=== PATIENT | female | born 1955 | race Caucasian/White ===

== ENCOUNTER 2017-01-15 20:27 | Emergency (ER) | payer OTHER ==
--- NOTE | 2017-01-15 20:35 | PDOC ---
History of Present Illness - General History Source: Patient Exam Limitations: No Limitations - History of Present Illness Initial Comments: 01/15/17 20:57 The patient is a 61 year old female, with a significant past medical history of HTN, DM, hyperlipidemia, non-hodgkin's lymphoma, thyroid cancer, and depression who presents to the emergency department with s/p mechanical fall. The patient reports tripping over a step, falling, and hitting her head on a metal handrail. She denies any LOC. She denies any blurry vision. She arrives to the ER with complaints of head pain and neck pain. She denies recent fevers , chills, or dizziness. She denies recent nausea, vomit, diarrhea or constipation. PAST MEDICAL HISTORY: See HPI PAST SURGICAL HISTORY: No significant history. FAMILY HISTORY: No pertinent history. SOCIAL HISTORY: Patient lives with family and is employed. MEDICATIONS: Reviewed. ALLERGIES: As per nursing notes. ROS General: No fevers or chills, no weakness, no weight loss HEENT: No change in vision. No sore throat. No ear pain CardioVascular: No chest pain or shortness of breath Respiratory:No cough, or wheezing. Gastrointestinal: No nausea, vomiting, diarrhea or constipation. No rectal bleeding Genitourinary: No dysuria, hematuria, or frequency Musculoskeletal: +neck and head pain. No joint or muscle pain or swelling Neurologic: No headache, vertigo, dizziness or loss of consciousness Psychiatric: No depression Skin: No rashes or easy bruising Endocrine: no increased thirst or abnormal weight change Allergic: no skin or latex allergy All other systems reviewed and normal Exam: GENERAL: The patient is awake, alert, and fully oriented, in no acute distress. HEAD: Large hematoma at the right occiput with some tenderness on palpation. Tenderness on palpation of neck. No bony tenderness on palpation of the C-spine . EYES: Pupils equal, round and reactive to light, extraocular movements intact, sclera anicteric, conjunctiva clear. EXTREMITIES: Normal range of motion, no edema. NEUROLOGICAL: Normal speech, normal gait. PSYCH: Normal mood, normal affect. SKIN: Warm, Dry, normal turgor, no rashes or lesions noted. <Salty Menon - Last Filed: 01/15/17 20:57> - General History Source: Patient Exam Limitations: No Limitations - History of Present Illness Initial Comments: 01/15/17 22:44 A portion of this note was documented by scribe services under my direction. I have reviewed the details of the note, within reason, and agree with the documentation. The case summary and management plan written by me. CT scan of head no acute intracranial pathology. CT scan cervical spine no acute bony pathology Assessment and plan: This is a 61-year-old male with a contusion of the scalp woke had the a head CT that was negative for any acute pathology as well as a cervical spine CT that was negative for any bony pathology. Patient discharged home will follow-up with her primary care doctor as needed. <Renan Johnson I - Last Filed: 01/15/17 22:46> - General Chief Complaint: Injury Stated Complaint: S/P FALL Time Seen by Provider: 01/15/17 20:32 Past History <Salty Menon - Last Filed: 01/15/17 20:57> - Past Medical History Cancer: Yes (Thyroid) Diabetes: Yes GI Disorders: Yes (MULTIPLE OBSTRUCTIONS) HTN: Yes Hypercholesterolemia: Yes Psychiatric Problems: Yes (Depression) - Surgical History Abdominal Surgery: Yes (HERNIA) Cholecystectomy: Yes GI Surgery: Yes - Immunization History Immunization Up to Date: No - Psycho/Social/Smoking Cessation Hx Anxiety: No Suicidal Ideation: No Smoking History: Never smoked Have you smoked in the past 12 months: No Hx Alcohol Use: No Drug/Substance Use Hx: No Substance Use Type: None <Renan Johnson I - Last Filed: 01/15/17 22:46> - Past Medical History Allergies/Adverse Reactions: Allergies Allergy/AdvReac Type Severity Reaction Status Date / Time Penicillins Allergy Verified 07/24/14 08:21 Home Medications: Ambulatory Orders Aspirin [ASA -] 81 mg PO DAILY 07/24/14 Cholecalciferol (Vitamin D3) [Vitamin D] 1,000 unit PO DAILY 07/24/14 Cyanocobalamin (Vitamin B-12) [Vitamin B-12] 2,000 mcg PO DAILY 07/24/14 Insulin Lispro [Humalog] 0 unit SQ ACHS PRN 07/24/14 Simvastatin 10 mg PO HS 07/24/14 Levothyroxine [Synthroid -] 275 mcg PO DAILY 04/09/15 Lisinopril/Hydrochlorothiazide [Lisinopril-Hctz 20-25 mg Tab] 1 each PO DAILY Metformin HCl [Metformin HCl ER] 1,000 mg PO BID 04/09/15 *Physical Exam - Vital Signs Last Vital Signs Temp Pulse Resp BP Pulse Ox 98.4 F 75 14 122/58 100 01/15/17 20:33 01/15/17 20:33 01/15/17 20:33 01/15/17 20:33 01/15/17 20:33 <Salty Menon - Last Filed: 01/15/17 20:57> *DC/Admit/Observation/Transfer - Attestations Scribe Attestion: 01/15/17 20:57 Documentation prepared by Salty Menon, acting as biomedical equipment tech for Renan Johnson MD. <Salty Menon - Last Filed: 01/15/17 20:57> - Discharge Dispostion Admit: No <Renan Johnson I - Last Filed: 01/15/17 22:46> Diagnosis at time of Disposition: Contusion of scalp Qualifiers: Encounter type: initial encounter Qualified Code(s): S00.03XA - Contusion of scalp, initial encounter - Discharge Dispostion Disposition: HOME Condition at time of disposition: Good - Patient Instructions Printed Discharge Instructions: Closed Head Injury, DI for Closed Head Injury Additional Instructions: Someone should check on you once tonight during the night. You should be arousable to your Normal level of arousability for that time of the night. If you have been vomiting, have had a seizure, or you are unable to be aroused or the person checking on you is concerned that there has been a change in your mental status they should call 911 and have you brought back to the emergency department. You can take Tylenol as needed for pain. Return to the emergency department immediately with ANY new, persistent or worsening symptoms. Continue any medications as previously prescribed by your physician. You should follow up with your primary doctor as soon as possible regarding today's emergency department visit. . Please make sure your doctor reviews the results of your emergency evaluation. Thank you for coming to the Emergency Department today for your care. It was a pleasure to see you today. Please note that your evaluation is INCOMPLETE until you follow-up with your doctor.
[2017-01-15 20:39] VITALS: BP 122/58; PULSE 75; TEMP 98.4; BMI 32.9
[2017-01-15] MEDS ORDERED: ACETAMINOPHEN 500 MG TABLET (FP) PO ONE (21:46)
[2017-01-15] MEDS ORDERED: ACETAMINOPHEN 325 MG TABLET (FP) ONE (21:47)
== END 2017-01-15 22:49 | disposition home or self-care (01) ==
LOC: FER 20:27
DX: S00.03XA Contusion of scalp, initial encounter (principal); Z85.850 Personal history of malignant neoplasm of thyroid; E11.9 Type 2 diabetes mellitus without complications; I10 Essential (primary) hypertension; E78.00 Pure hypercholesterolemia, unspecified; K92.9 Disease of digestive system, unspecified; Z79.4 Long term (current) use of insulin
CPT/HCPCS: 70450-TC; 72125-TC; 99282-25

== ENCOUNTER 2018-04-26 19:08 | Observation (INO) | payer OTHER ==
--- NOTE | 2018-04-26 20:45 | PDOC ---
Attending Attestation - HPI HPI: 04/26/18 21:15 The patient is a 63 year old female, with a significant past medical history of epilepsy, HTN, DM, hyperlipidemia, non-hodgkin's lymphoma, thyroid cancer, and depression, who presents to the emergency department s/p syncope. As per patient , she was bringing groceries into her apartment and does not recall what happened after that and before entering the ED via EMS. As per EMS, a bystander saw her drop herself to the floor prompting their call to EMS. Upon her arrival , the patient has dirt all over her face. Patient endorses mild headache and right wrist pain. She denies recent fevers, chills, or dizziness. She denies recent nausea, vomit , diarrhea or constipation. She denies recent dysuria, frequency, urgency or hematuria. She denies recent chest pain or shortness of breath. Allergies: Penicillins. Primary Care Physician: [facility] Neurologist: Dr. Ariane De La Garza - Physicial Exam PE: 04/26/18 21:18 +GENERAL: Dirt on face. Well-nourished. No apparent distress. HEENT: Normocephalic, atraumatic. PERRL, EOM intact. CARDIOVASCULAR: Normal S1, S2. Regular rate and rhythm. PULMONARY: Clear to auscultation bilaterally. ABDOMEN: Soft, non-distended, non-tender. EXTREMITIES: Right wrist pain. No gross deformities. SKIN: Warm, dry. No rash NEUROLOGICAL: No focal neurological deficits. - Medical Decision Making 04/26/18 21:[address] De La Garza, patient's neurologist, awaiting call back. 22:23 Second call placed to Dr. De La Garza, patient's neurologist, awaiting call back. 22:36 Call returned from WESLEY Caruso, case discussed with resident Dr. Prince. <Rosangela Byrd - Last Filed: 04/26/18 22:35> - Resident Resident Name: Jose Daniel Prince - ED Attending Attestation I have performed the following: I have examined & evaluated the patient, The case was reviewed & discussed with the resident, I agree w/resident's findings & plan, Exceptions are as noted - Medical Decision Making 04/26/18 22:00 EMS reports a 63-year-old female found lying on the ground with altered mental status. As per bystander this patient was seen walking down the block and didn't seem right. She lowered herself facedown on the ground. Patient did not recall what had happened. She had no initial complaints other than confusion. Upon arriving to the emergency department. She stated that she She was here was slightly confused and belligerent and requesting to leave immediately. She did have some grinding and it on her face and complained of right wrist pain. Patient has past medical history of seizures. CAT scan was obtained immediately and showed a normal CT scan of the head. There was no color Varian, facial or skull base fractures. There was no intracranial hemorrhages or brain parenchymal contusion injuries. Initial BGM was about 190. The patient was alert and oriented 4, she could not recall what happened. The last thing she remembers was walking down the block to go to her home. EKG is normal sinus rhythm at 70 bpm with first-degree AV block. Right bundle branch block and minimal criteria for LVH. 04/26/18 23:28 wrist xray: fracture radial/ulna, good ulnar and radial pulses,plan: splint , ortho consult trop=0.11, plan repeat trop ADMIT TELE OBS diag diff inclused syncope episode,atypical seizure, rt wrist fracture <Luh Mcgregor - Last Filed: 04/26/18 23:30> Attestations - Attestations 04/26/18 21:21 Documentation prepared by Rosangela Byrd, acting as medical and health services manager for Luh Mcgregor MD. <Rosangela Byrd - Last Filed: 04/26/18 22:35> - Attestations Physician Attestation: 04/26/18 21:55 this 63 yo female was BIBA after being found down <Luh Mcgregor - Last Filed: 04/26/18 23:30>
--- NOTE | 2018-04-26 21:00 | PDOC ---
History of Present Illness - General Chief Complaint: Altered Mental Status Stated Complaint: AMS Time Seen by Provider: 04/26/18 19:41 History Source: Patient Exam Limitations: No Limitations - History of Present Illness Initial Comments: 04/26/18 20:34 63 yo female pmh of diabetes, seizures FRANK presents to the ED after LOC and hitting head suddenly while walking from her car to the grocery store. Reportedly AOX2 at the seen and finger stick of 130 in the field. Pt states she has had a total of 3 seizures since August of this year without ever having a seizure or epilepsy prior to August. There is no warning or trigger with past seizures and pt describes todays LOC as similar to past seizures; also denies tongue bitting or incontinence. Pt states she did not know how she got to [facility] and has loss of time. Denies Cp, palpitations, SOB , OROZCO, N/V/F/C, or one sided weakness. Past History - Past Medical History Allergies/Adverse Reactions: Allergies Allergy/AdvReac Type Severity Reaction Status Date / Time Penicillins Allergy Verified 04/26/18 19:44 Home Medications: Ambulatory Orders Aspirin [ASA -] 81 mg PO DAILY 07/24/14 Cholecalciferol (Vitamin D3) [Vitamin D] 1,000 unit PO DAILY 07/24/14 Cyanocobalamin (Vitamin B-12) [Vitamin B-12] 2,000 mcg PO DAILY 07/24/14 Insulin Lispro [Humalog] 0 unit SQ ACHS PRN 07/24/14 Simvastatin 10 mg PO HS 07/24/14 Levothyroxine [Synthroid -] 275 mcg PO DAILY 04/09/15 Lisinopril/Hydrochlorothiazide [Lisinopril-Hctz 20-25 mg Tab] 1 each PO DAILY Metformin HCl [Metformin HCl ER] 1,000 mg PO BID 04/09/15 Cancer: Yes (Thyroid) COPD: No CHF: No Diabetes: Yes GI Disorders: Yes (MULTIPLE OBSTRUCTIONS) HTN: Yes Hypercholesterolemia: Yes Psychiatric Problems: Yes (Depression) Seizures: Yes - Surgical History Abdominal Surgery: Yes (HERNIA) Cholecystectomy: Yes GI Surgery: Yes - Immunization History Immunization Up to Date: No - Suicide/Smoking/Psychosocial Hx Smoking History: Never smoked Have you smoked in the past 12 months: No Number of Cigarettes Smoked Daily: 0 Information on smoking cessation initiated: No Hx Alcohol Use: No Drug/Substance Use Hx: No Substance Use Type: None Review of Systems - Review of Systems Constitutional: Yes: Other (LOC unknown amount of time). No: Chills, Fever HEENTM: No: Blurred Vision, Double Vision Respiratory: No: Shortness of Breath Cardiac (ROS): No: Chest Pain, Lightheadedness, Palpitations, Syncope ABD/GI: No: Constipated, Diarrhea, Nausea, Vomiting : No: Burning, Dysuria Neurological: No: Headache, Numbness, Paresthesia, Tingling, Tremors, Weakness, Unsteady Gait, Ataxia *Physical Exam - Vital Signs Last Vital Signs Temp Pulse Resp BP Pulse Ox 97.2 F L 73 17 189/71 H 100 04/26/18 20:13 04/26/18 20:15 04/26/18 20:15 04/26/18 20:15 04/26/18 20:15 ED Treatment Course - LABORATORY CBC & Chemistry Diagram: 04/26/18 21:20 04/26/18 21:20 - ADDITIONAL ORDERS Additional order review: Laboratory Results 04/26/18 20:12 POC Glucometer [id number] 04/26/18 20:12 POC Glucometer 129.13137 - RADIOLOGY Radiology Studies Ordered: Category Date Time Status HEAD CT WITHOUT CONTRAST [CT] Stat CT Scan 04/26/18 20:17 Ordered Medical Decision Making - Medical Decision Making 04/26/18 21:23 63 yo female hx of diabetes and seizures found down and AOx2. Finger stick at seen 130 Exam: No concerning or unilateral neurological s/s DDX: Seizure, arrhythmia, ACS, syncope Head CT negative for acute intracranial path Right wrist x ray ED read positive for distal ulna fracture On first encounter with pt states "I hate this hospital and will leave." Agrees to have blood glucose rechecked, have head CT and right wrist x ray after calmed down. Spoke with SENIOR APPLICATION SECURITY CONSULTANT Mrs. Caruso who works for patients Neurologist and states pt does not have formal diagnosis of true epilepsy, no eeg findings consistent. Recommends giving home dose of Oxcarbazepine 450mg at night and 300mg in the morning. Will admit pt for Tele OBS and splint right forearm and wrist. *DC/Admit/Observation/Transfer Diagnosis at time of Disposition: Syncope Qualifiers: Encounter type: subsequent encounter - Discharge Dispostion Condition at time of disposition: Fair Decision to Admit order: Yes - Referrals - Patient Instructions - Post Discharge Activity
[2018-04-26 21:35] LABS: BASO % 0.8 % (0-2.0); HEMATOCRIT 34.1 % (32.4-45.2); HEMOGLOBIN 11.3 GM/dL (10.7-15.3); LYMPH % 12.6 % (8-40); MCH 26.7 pg (25.7-33.7); MCHC 33.2 g/dl (32.0-36.0); MEAN CELL VOLUME 80.3 fl (80-96); MEAN PLT VOLUME 6.9 fl (7.5-11.1); MONO % 3.4 % (3.8-10.2); NEUT % 82.2 % (42.8-82.8); PLATELET COUNT 347 K/MM3 (134-434); RBC 4.24 M/mm3 (3.60-5.2); WHITE BLOOD COUNT 8.4 K/mm3 (4.0-10.0)
[2018-04-26 21:50] LABS: INR 1.1 (0.83-1.09)
[2018-04-26 22:04] LABS: ALBUMIN 4.2 g/dl (3.4-5.0); ALK PHOS 94 U/L (45-117); ANION GAP 12 MMOL/L (8-16); BILIRUBIN,TOTAL 0.3 mg/dL (0.2-1); BLOOD UREA NITROGEN 20 mg/dL (7-18); CALCIUM 8.6 mg/dL (8.5-10.1); CHLORIDE 101 mmol/L (98-107); CO2 24 mmol/L (21-32); CREATININE 0.9 mg/dL (0.55-1.3); GLUCOSE,RANDOM 122 mg/dL (74-106); SGOT/AST 22 U/L (15-37); SGPT/ALT 25 U/L (13-61); SODIUM 137 mmol/L (136-145); TOT PROT 8.1 g/dl (6.4-8.2)
[2018-04-26] MEDS ORDERED: OXcarbazepine 300 MG/5 ML 250 ML BULK BOTTLE PO ONE (22:37)
[2018-04-26 23:13] LABS: URINE APPEARANCE CLEAR; URINE BILIRUBIN NEGATIVE (<2.0 mg/dL); URINE COLOR STRAW; URINE GLUCOSE (UA) NEGATIVE (NEGATIVE); URINE KETONE NEGATIVE (NEGATIVE); URINE LEUK ESTERASE NEGATIVE (NEGATIVE); URINE NITRITE NEGATIVE (NEGATIVE); URINE PROTEIN 2+ (NEGATIVE); URINE UROBILINOGEN NEGATIVE mg/dL (0.2-1.0)
[2018-04-26] MEDS ORDERED: ACETAMINOPHEN 1000 MG/100 ML VIAL (NON FORMULARY) IVPB ONE (23:26)
[2018-04-26] MEDS ORDERED: ACETAMINOPHEN INJECTION 100 ML IVPB ONE (23:29)
--- NOTE | 2018-04-27 00:48 | HP ---
CHIEF COMPLAINT: syncopal episode, fall PCP: [facility] Neurologist: Dr. Ariane De La Garza HISTORY OF PRESENT ILLNESS: Patient is a 63 year old female with history significant for falls (last one a month ago), seizures, non-hodgkins lymphoma, thyroid cancer s/p resection, diabetes, hypertension, hyperlipidemia, depression, small bowel obstruction, presents s/p syncopal episode and fall. Patient states she was coming home from grocery shopping at 5:30 this afternoon, and next remembers hearing voices and waking up inside the ambulance. She denies any prodromal symptoms. Denies dizziness, lightheadedness, change in vision, tinnitus, chest pain, palpitations , shortness of breath, abdominal pain, nausea. Endorses feeling confused, with nausea ad headache for one hour after regaining consciousness. Denies bladder or bowel incontinence, tongue biting. She is unsure if she hit her head. Per ED note, a witness noticed that she brought herself to the ground, however patient believes her life-alert bracelet had called for EMS after a fall. She admits she had 4 similar falls that began August 2017, and admits numerous workups that have been non-revealing to the etiology of these events. ER course was notable for: (1) EKG: NSR at 70bpm, borderline first degree heart block, RBBB. Troponin 0.11 (2) CT head negative for interracial hemorrhage (preliminary read). (3) Fracture of right distal ulna Recent Travel: denies PAST MEDICAL HISTORY: Falls (last one a month ago), seizures, non-hodgkins lymphoma, thyroid cancer s/p resection, diabetes, hypertension, hyperlipidemia, depression, small bowel obstruction, PAST SURGICAL HISTORY: Mesenteric artery, hernia repair, cholecystectomy, thyroidectomy Social History: Smoking: admits smoking marijuana heavily between [id number]. Alcohol: denies Drugs: admits using hemp oil to help fall asleep. 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 Father: CAD, s/p cardiac stents. Allergies Penicillins Allergy (Verified 04/26/18 19:44) HOME MEDICATIONS: Home Medications Medication Instructions Recorded Aspirin [ASA -] 81 mg PO DAILY 07/24/14 Cholecalciferol (Vitamin D3) 1,000 unit PO DAILY 07/24/14 [Vitamin D] Cyanocobalamin (Vitamin B-12) 2,000 mcg PO DAILY 07/24/14 [Vitamin B-12] Insulin Lispro [Humalog] 0 unit SQ ACHS PRN 07/24/14 Simvastatin 10 mg PO HS 07/24/14 Levothyroxine [Synthroid -] 275 mcg PO DAILY 04/09/15 Lisinopril/Hydrochlorothiazide 1 each PO DAILY 04/09/15 [Lisinopril-Hctz 20-25 mg Tab] Metformin HCl [Metformin HCl ER] 1,000 mg PO BID 04/09/15 REVIEW OF SYSTEMS As per HPI PHYSICAL EXAMINATION Vital Signs - 24 hr 04/26/18 04/26/18 04/26/18 19:10 20:13 20:15 Temperature 97.7 F 97.2 F L Pulse Rate 69 Pulse Rate [ 73 73 Apical] Respiratory 17 18 17 Rate Blood Pressure 141/75 Blood Pressure 189/71 H 189/71 H [Left Arm] O2 Sat by Pulse 97 100 100 Oximetry (%) GENERAL: Awake, alert, and fully oriented, in no acute distress. HEAD: Normal with no signs of trauma. EYES: Pupils equal, round and reactive to light, extraocular movements intact without nystagmus. Sclera anicteric, conjunctiva noninjected b/l. EARS, NOSE, THROAT: Oropharynx clear without exudates. Moist mucous membranes. No tongue bite valdivia, or bleeding noted. NECK: Normal range of motion, supple without lymphadenopathy, JVD, or masses. LUNGS: Breath sounds equal, clear to auscultation bilaterally. No wheezes, and no crackles. No accessory muscle use. HEART: Regular rate and rhythm, normal S1 and S2. Holosystolic murmur appreciated radiating to carotids b/l. ABDOMEN: Obese. Soft, nontender, not distended, normoactive bowel sounds, no guarding, no rebound, no masses. No hepatomegaly palpated. MUSCULOSKELETAL: Normal range of motion at all joints. No bony deformities or tenderness. No CVA tenderness. UPPER EXTREMITIES: 2+ radial pulses b/l, warm, well-perfused. Right forearm swollen, tender to palpation. LOWER EXTREMITIES: 2+ dorsalsi pedis pulses b/l, warm, well-perfused. No calf tenderness. No peripheral edema b/l. NEUROLOGICAL: Cranial nerves II-XII intact. Normal speech. Normal gait. Strength 5/5 left upper extremity, 4/5 right upper extremity (limited by pain in right forearm). Strength 5/5 b/l lower extremities. PSYCHIATRIC: Cooperative. Appropriate mood and affect upon my encounter today. SKIN: Warm, dry. Old, healed, vertical surgical scar noted along abdomen. Numerous scratches along b/l hands noted. Laboratory Results - last 24 hr 04/26/18 04/26/18 04/26/18 20:12 21:20 21:20 WBC 8.4 RBC 4.24 Hgb 11.3 Hct 34.1 MCV 80.3 MCH 26.7 MCHC 33.2 RDW 15.0 Plt Count 347 MPV 6.9 L D Absolute Neuts (auto) 6.9 Neutrophils % 82.2 Lymphocytes % 12.6 Monocytes % 3.4 L Eosinophils % 1.0 Basophils % 0.8 Nucleated RBC % 0 PT with INR 13.00 INR 1.10 H Sodium Potassium Chloride Carbon Dioxide Anion Gap BUN Creatinine Creat Clearance w eGFR POC Glucometer [id number] Random Glucose Calcium Total Bilirubin AST ALT Alkaline Phosphatase Creatine Kinase Troponin I Total Protein Albumin Urine Color Urine Appearance Urine pH Ur Specific [place] Urine Protein Urine Glucose (UA) Urine Ketones Urine Blood Urine Nitrite Urine Bilirubin Urine Urobilinogen Ur Leukocyte Esterase Urine WBC (Auto) Urine RBC (Auto) Blood Type Antibody Screen 04/26/18 04/26/18 04/26/18 21:20 21:20 23:04 WBC RBC Hgb Hct MCV MCH MCHC RDW Plt Count MPV Absolute Neuts (auto) Neutrophils % Lymphocytes % Monocytes % Eosinophils % Basophils % Nucleated RBC % PT with INR INR Sodium 137 Potassium 4.0 Chloride 101 Carbon Dioxide 24 Anion Gap 12 BUN 20 H Creatinine 0.9 Creat Clearance w eGFR > 60 POC Glucometer Random Glucose 122 H Calcium 8.6 Total Bilirubin 0.3 AST 22 ALT 25 Alkaline Phosphatase 94 Creatine Kinase 118 Troponin I 0.11 H Total Protein 8.1 Albumin 4.2 Urine Color Straw Urine Appearance Clear Urine pH 8.0 D Ur Specific [place] 1.009 L Urine Protein 2+ H Urine Glucose (UA) Negative Urine Ketones Negative Urine Blood 1+ H Urine Nitrite Negative Urine Bilirubin Negative Urine Urobilinogen Negative Ur Leukocyte Esterase Negative Urine WBC (Auto) 1 Urine RBC (Auto) 4 Blood Type A POSITIVE Antibody Screen Negative 10/28/18 23:11 WBC RBC Hgb Hct MCV MCH MCHC RDW Plt Count MPV Absolute Neuts (auto) Neutrophils % Lymphocytes % Monocytes % Eosinophils % Basophils % Nucleated RBC % PT with INR INR Sodium Potassium Chloride Carbon Dioxide Anion Gap BUN Creatinine Creat Clearance w eGFR POC Glucometer Random Glucose Calcium Total Bilirubin AST ALT Alkaline Phosphatase Creatine Kinase Troponin I 0.11 H Total Protein Albumin Urine Color Urine Appearance Urine pH Ur Specific [place] Urine Protein Urine Glucose (UA) Urine Ketones Urine Blood Urine Nitrite Urine Bilirubin Urine Urobilinogen Ur Leukocyte Esterase Urine WBC (Auto) Urine RBC (Auto) Blood Type Antibody Screen ASSESSMENT/PLAN: Patient is a 63 year old female with history significant for falls (last one a month ago), seizures, non-hodgkins lymphoma, thyroid cancer s/p resection, diabetes, hypertension, hyperlipidemia, depression, small bowel obstruction, presents s/p syncopal episode and fall. Syncopal episode, fall -Neurogenic vs. cardiogenic etiology -CT head negative for interracial hemorrhage (preliminary read). -Obtain records from outpatient neurologist/ [facility] -Orthostatic BP -Fall precautions -Seizure precautions -Neuro checks Q4H -Continue Oxcarbazepine 300mg AM, 450mg HS -F/U carotid doppler -F/U neurology consult (Dr. Wolfe) Right wrist fracture -Xray right wrist shows distal ulnar avulsion fracture (upon my read). Pending official read -Volar splint applied in ED -F/U orthopedic consult (Dr. Orona) -Tylenol 650mg PO Q6H PRN pain 1-5 -Oxycodone 5mg PO Q6H PRN pain 6-10 -Dulcolax, senna for constipation Troponinemia -Likely demand ischemia vs. hypertensive emergency (BP upon admission was 189/71 ) -EKG shows normal sinus rhythm at 70 bpm. Borderline first degree heart block. RBBB. -Trend troponins -F/U CKMB -F/U cardiology consult (Dr. Oviedo) -F/U cardiac echo Hypertenison -Lisinopril 30mg PO daily -Amlodipine 5mg PO daily Hyperlipidemia -Simvastatin 10mg PO daily Thyroid CA s/p thyroidectomy -Synthroid 0.150mg PO daily FEN -No IV fluids -Follow CMP -Diabetic diet Prophylaxis -Heparin 5000u subq TID Disposition -Observation in medical-surgical floor Visit type - Emergency Visit Emergency Visit: Yes Care time: The patient presented to the Emergency Department on the above date and was hospitalized for further evaluation of their emergent condition. - New Patient This patient is new to me today: Yes Date on this admission: 04/27/18 - Critical Care Critical Care patient: No
--- NOTE | 2018-04-27 00:48 | PN ---
Teaching Attending Note Name of Resident: Jennifer Coffey ATTENDING PHYSICIAN STATEMENT I saw and evaluated the patient. I reviewed the resident's note and discussed the case with the resident. I agree with the resident's findings and plan as documented. SUBJECTIVE: Seen and examined; please see resident's full note for further historical details. In summation, this is a 63 y/o CF with a PMH significant for NHL, thyroid CA (both s/p sgy), idiopathic seizures diagnosed earlier this year, DM, HTN, HLD. She presents to the hospital with a CC of being brought in by EMS for fall while out in public that appears to be a syncopal episode. She has been seen for syncopal episodes in past at other hospitals and did, as per the patient, have an extensive work up done last month during a [address] [facility]. She tells me that she had MRI, EEG, loop recorder and still no identifiable cause of the syncopal episodes. It sounds like, by history, that this is what prompted her diagnosis of seizure. Today she went down without any rotational motion or sx; she states she was awake then the ' next thing she knew was that she was in an ambulance.' The episode was witnessed by other people; no reported tonic-clonic activity; patient denies loss of bowel or bladder controlling. We are in process of obtaining outpatient records and records from previous hospitalization. She will be brought to the medicine service. Other issues include R-forearm fracture from the fall today s/p splinting in the ER, flat (but elevated) troponin. 10 sys ROS done; negative if not in HPI Denies EtOH, drugs, tobacco. PSH significant for thyroidectomy PMH as discussed FH for father with CAD OBJECTIVE: VS Labs and imaging reviewed NAD, resting in bed, AAO RRR s1/2 with 3/6 systolic murmur CN2-12 grossly intact with normal gait, no FND. No cerebellar signs. Normal mood, appropriate behavior NT ND +BS Trachea midline, no JVD In L-sided splint applied by ER; normal tone and ROM aside from the pain and splinting restricting the right forearm. EKG reviewed; borderline first degree HB with RBBB R-sided distal ulnar fx likely; awaiting final report ASSESSMENT AND PLAN: 1) Syncope with Fall -Patient brought in by EMS for this; has had these sx repeatedly. No cause identified and has been worked up for this at length in the past at other facilities. Following outpatient with neurology and cardiology. -In terms of workup, obtain old chart from [facility] from last month to see what tests should still be ordered (MRI, echo, etc.). We will check orthostatic VS and monitor on tele with neuro checks and seizure precautions. -In terms of neurogenic causes, ER spoke with the patient's OP neurologist [employer]. They stated to continue her on her home meds. We will review old studies (MRI, EEG) and obtain the outpatient chart. If deemed necessary can consult neurology in the morning vs. outpt. followup. Monitor for sz. -In terms of cardiogenic causes, we will monitor on tele and obtain old records from OP cardiology. Her BP was nearly 190 SBP when presenting so there is a chance that hypertensive crisis could have contributed to her presentation. Ensure she has old echo. Given her PMH lending risk factors for vascular disease, if it hasn't been done would be worth checking a carotid duplex. 2) Elevated Troponin -No CP, SOB; has had these sx in the past and they aparently were not from any ACS, etc. Due to this I have a low suspicion that these do represent any true ACS at this juncture. She does have significant risk factors for heart disease including age, PMH, FH (father). Thus we will monitor on telemetry, trend troponin, and consult cardio. -Ddx includes demand vs. hypertensive emergency vs. ACS (less likely) -Wells Score is 0 making PE unlikely. 3) Hypertensive Emergency (likely) -Continue home meds; PRN hydralazine to lower BP at appropriate rate. Now in 140s; monitor on tele. -Titrate home med doses if needed once baseline established 4) R-Distal Ulnar Fracture -Seen on imaging; awaiting final report. -Orthopedic sgy consult -Splinted in ER. Pain control and bowel regimine. -PT if indicated 5) History of NHL -No acute issues; followup outpt 6) H/O Thyroid CA -NO acute issues, followup OP 7) Systolic Murmur -Followup on old echo vs. obtaining new 8) History Of Seizures -Idiopathic as per history; obtain old data to better elucidate the underlying etiology. -Continue home medications per call 9) NIDDM -Hold PO antihyperglycemics and place on SSI while inpatient. 10) HLD -Continue statin 11) Obesity -Collector Of Internal Revenue when clinically appropriate 12) RBBB -Obtain old EKG to see if old 13) S/P loop recorder -Obtaining cards records Full Code
[2018-04-27] MEDS ORDERED: BISACODYL 5 MG TABLET.DR (FP) PO PRN (00:50)
[2018-04-27] MEDS ORDERED: oxyCODONE HCL 5 MG TABLET PO PRN (00:58)
[2018-04-27] MEDS ORDERED: ACETAMINOPHEN 500 MG TABLET (FP) PO ONE (03:10)
[2018-04-27] MEDS ORDERED: ACETAMINOPHEN 325 MG TABLET (FP) ONE ×2 (03:11→09:55)
[2018-04-27] MEDS ORDERED: ACETAMINOPHEN INJECTION 100 ML IVPB ONE (03:12)
[2018-04-27] MEDS ORDERED: ACETAMINOPHEN 1000 MG/100 ML VIAL (NON FORMULARY) IVPB ONE (03:12)
[2018-04-27] MEDS ORDERED: HEPARIN NA (PORCINE) 5,000 UNITS/ML 1ML VIAL ONE (06:25)
[2018-04-27] MEDS: HEPARIN NA (PORCINE) 5,000 UNITS/ML 1ML VIAL SQ SCH ×3 (06:40→22:00)
[2018-04-27] MEDS: INSULIN SLIDING SCALE (NOVOLOG) 1 VIAL SQ SCH ×4 (06:50→22:00)
[2018-04-27] MEDS: LEVOTHYROXINE NA 150 MCG TABLET PO SCH (06:50)
[2018-04-27 07:22] LABS: HEMATOCRIT 30.8 % (32.4-45.2); HEMOGLOBIN 10.1 GM/dL (10.7-15.3); MCH 26.2 pg (25.7-33.7); MCHC 32.8 g/dl (32.0-36.0); MEAN CELL VOLUME 79.9 fl (80-96); MEAN PLT VOLUME 6.7 fl (7.5-11.1); PLATELET COUNT 319 K/MM3 (134-434); RBC 3.85 M/mm3 (3.60-5.2); RDW 15.2 % (11.6-15.6); WHITE BLOOD COUNT 7.8 K/mm3 (4.0-10.0)
[2018-04-27 08:06] LABS: ALBUMIN 3.7 g/dl (3.4-5.0); ALK PHOS 77 U/L (45-117); ANION GAP 7 MMOL/L (8-16); BILIRUBIN,TOTAL 0.3 mg/dL (0.2-1); BLOOD UREA NITROGEN 21 mg/dL (7-18); CALCIUM 8.6 mg/dL (8.5-10.1); CHLORIDE 101 mmol/L (98-107); CO2 26 mmol/L (21-32); GLUCOSE,RANDOM 115 mg/dL (74-106); MAGNESIUM 2.1 mg/dL (1.8-2.4); PHOSPHOROUS 4.4 mg/dL (2.5-4.9); POTASSIUM 3.6 mmol/L (3.5-5.1); SGOT/AST 18 U/L (15-37); SGPT/ALT 22 U/L (13-61); SODIUM 134 mmol/L (136-145)
[2018-04-27] MEDS ORDERED: OXcarbazepine 300 MG/5 ML 250 ML BULK BOTTLE PO ONE (09:00)
--- NOTE | 2018-04-27 09:28 | CONSULT ---
Consult - text type - Consultation Consultation Note: Neurology CHIEF COMPLAINT: syncopal episode, fall PCP: [facility] Neurologist: Dr. Ariane De La Garza HISTORY OF PRESENT ILLNESS: 63 year old female with history significant for falls (last one a month ago), reported seizures, non-hodgkins lymphoma, thyroid cancer s/p resection, diabetes , hypertension, hyperlipidemia, depression, small bowel obstruction, presents s/ p syncopal episode and fall. Patient stated she was coming home from grocery shopping at 5:30pm on day of admission, and next remembers hearing voices and waking up inside the ambulance. She denied any prodromal symptoms. Denied dizziness, lightheadedness, change in vision, tinnitus, chest pain, palpitations , shortness of breath, abdominal pain, nausea. Endorsed feeling confused, with nausea and headache for one hour after regaining consciousness. Denied bladder or bowel incontinence, tongue biting. She is unsure if she hit her head. Reportedly had 4 similar falls that began August 2017, and admited numerous workups that have been non-revealing to the etiology of these events. EKG with reported NSR at 70bpm, borderline first degree heart block, RBBB. CT head without acute changes, Fracture of right distal ulna on xray, patient in ER with cast on arm. Patient reports most recently having 5 days of EEG monitoring and did not show epileptiform activty. She takes trileptal 450 and 300 and follows up with epileptoligist. Does not seem to have symptoms consistent with seizure and seems more syncopal. Recent Travel: denies PAST MEDICAL HISTORY: Falls (last one a month ago), seizures, non-hodgkins lymphoma, thyroid cancer s/p resection, diabetes, hypertension, hyperlipidemia, depression, small bowel obstruction, PAST SURGICAL HISTORY: Mesenteric artery, hernia repair, cholecystectomy, thyroidectomy Social History: Smoking: admits smoking marijuana heavily between [id number]. Alcohol: denies Drugs: admits using hemp oil to help fall asleep. 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 Father: CAD, s/p cardiac stents. Allergies Penicillins Allergy (Verified 04/26/18 19:44) HOME MEDICATIONS: Home Medications Medication Instructions Recorded Aspirin [ASA -] 81 mg PO DAILY 07/24/14 Cholecalciferol (Vitamin D3) 1,000 unit PO DAILY 07/24/14 [Vitamin D] Cyanocobalamin (Vitamin B-12) 2,000 mcg PO DAILY 07/24/14 [Vitamin B-12] Insulin Lispro [Humalog] 0 unit SQ ACHS PRN 07/24/14 Simvastatin 10 mg PO HS 07/24/14 Levothyroxine [Synthroid -] 275 mcg PO DAILY 04/09/15 Lisinopril/Hydrochlorothiazide 1 each PO DAILY 04/09/15 [Lisinopril-Hctz 20-25 mg Tab] Metformin HCl [Metformin HCl ER] 1,000 mg PO BID 04/09/15 REVIEW OF SYSTEMS As per HPI PHYSICAL EXAMINATION Vital Signs Period Temp Pulse Resp BP Sys/Amaro Pulse Ox Last 24 Hr 97.0 F-97.7 F 54-73 16-18 133-189/50-75 97-100 GENERAL: Awake, alert, and fully oriented, in no acute distress. HEAD: Normal with no signs of trauma. EYES: Pupils equal, round and reactive to light, extraocular movements intact without nystagmus. Sclera anicteric, conjunctiva noninjected b/l. EARS, NOSE, THROAT: Oropharynx clear without exudates. Moist mucous membranes. No tongue bite valdivia, or bleeding noted. NECK: Normal range of motion, supple without lymphadenopathy, JVD, or masses. LUNGS: Breath sounds equal, clear to auscultation bilaterally. No wheezes, and no crackles. No accessory muscle use. HEART: Regular rate and rhythm, normal S1 and S2. Holosystolic murmur appreciated radiating to carotids b/l. ABDOMEN: Obese. Soft, nontender, not distended, normoactive bowel sounds, no guarding, no rebound, no masses. No hepatomegaly palpated. MUSCULOSKELETAL: Normal range of motion at all joints. No bony deformities or tenderness. No CVA tenderness. UPPER EXTREMITIES: 2+ radial pulses b/l, warm, well-perfused. Right forearm swollen, tender to palpation. LOWER EXTREMITIES: 2+ dorsalsi pedis pulses b/l, warm, well-perfused. No calf tenderness. No peripheral edema b/l. NEUROLOGICAL: Cranial nerves II-XII intact. Normal speech. Normal gait. Strength 5/5 left upper extremity, 4/5 right upper extremity (limited by pain in right forearm). Strength 5/5 b/l lower extremities. PSYCHIATRIC: Cooperative. Appropriate mood and affect upon my encounter today. SKIN: Warm, dry. Old, healed, vertical surgical scar noted along abdomen. Numerous scratches along b/l hands noted. CBCD WBC 7.8 K/mm3 (4.0-10.0) 04/27/18 07:10 RBC 3.85 M/mm3 (3.60-5.2) 04/27/18 07:10 Hgb 10.1 GM/dL (10.7-15.3) L 04/27/18 07:10 Hct 30.8 % (32.4-45.2) L 04/27/18 07:10 MCV 79.9 fl (80-96) L 04/27/18 07:10 MCHC 32.8 g/dl (32.0-36.0) 04/27/18 07:10 RDW 15.2 % (11.6-15.6) 04/27/18 07:10 Plt Count 319 K/MM3 (134-434) 04/27/18 07:10 MPV 6.7 fl (7.5-11.1) L 04/27/18 07:10 CMP Sodium 134 mmol/L (136-145) L 04/27/18 07:10 Potassium 3.6 mmol/L (3.5-5.1) 04/27/18 07:10 Chloride 101 mmol/L (98-107) 04/27/18 07:10 Carbon Dioxide 26 mmol/L (21-32) 04/27/18 07:10 Anion Gap 7 MMOL/L (8-16) L 04/27/18 07:10 BUN 21 mg/dL (7-18) H 04/27/18 07:10 Creatinine 1.0 mg/dL (0.55-1.3) 04/27/18 07:10 Creat Clearance w eGFR 55.82 (>60) 04/27/18 07:10 Random Glucose 115 mg/dL (74-106) H 04/27/18 07:10 Calcium 8.6 mg/dL (8.5-10.1) 04/27/18 07:10 Total Bilirubin 0.3 mg/dL (0.2-1) 04/27/18 07:10 AST 18 U/L (15-37) 04/27/18 07:10 ALT 22 U/L (13-61) 04/27/18 07:10 Alkaline Phosphatase 77 U/L (45-117) 04/27/18 07:10 Total Protein 7.0 g/dl (6.4-8.2) 04/27/18 07:10 Albumin 3.7 g/dl (3.4-5.0) 04/27/18 07:10 CARDIAC ENZYMES Creatine Kinase 118 IU/L (26-192) 04/26/18 21:20 Troponin I 0.11 ng/ml (0.00-0.05) H 04/27/18 07:10 ASSESSMENT/PLAN: 63 year old female with history significant for falls (last one a month ago), reported seizures, non-hodgkins lymphoma, thyroid cancer s/p resection, diabetes , hypertension, hyperlipidemia, depression, small bowel obstruction, presents s/ p syncopal episode and fall. Denied bladder or bowel incontinence, tongue biting. EKG with reported NSR at 70bpm, borderline first degree heart block, RBBB. CT head without acute changes, Fracture of right distal ulna on xray, patient in ER with cast on arm. Patient reports most recently having 5 days of EEG monitoring and did not show epileptiform activty. She takes trileptal 450 and 300 and follows up with epileptoligist. Does not seem to have symptoms consistent with seizure and seems more syncopal. Can continue current seizure medication and dose. Follow up cardiac work up including orthostatics. Monitor bp, maintain normotensive range. Currently on Lisinopril and Amlodipine. Increased hydration recommended. PLanned for tele monitoring. Follow up NADIA kim. Pain control.
--- NOTE | 2018-04-27 09:44 | EKG ---
Test Reason : Blood Pressure : / mmHG Vent. Rate : 070 BPM Atrial Rate : 070 BPM P-R Int : 220 ms QRS Dur : 150 ms QT Int : 440 ms P-R-T Axes : 024 -28 026 degrees QTc Int : 475 ms SINUS RHYTHM WITH 1ST DEGREE A-V BLOCK RIGHT BUNDLE BRANCH BLOCK MINIMAL VOLTAGE CRITERIA FOR LVH, MAY BE NORMAL VARIANT ABNORMAL ECG WHEN COMPARED WITH ECG OF 10-SEP-2009 03:49, [place] INTERVAL HAS INCREASED T WAVE VARIATION Confirmed by NATE VIDAL MD ([id number]) on 04/27/2018 9:44:19 AM Referred By: Confirmed By:NATE VIDAL MD
[2018-04-27] MEDS: ACETAMINOPHEN 325 MG TABLET (FP) PO PRN ×2 (11:00→20:24)
--- NOTE | 2018-04-27 11:18 | CON.CARD ---
Consult Consult Specialty:: Cardiology Reason for Consultation:: syncope - History of Present Illness History of Present Illness: Patient is a 63 year old female with history significant for falls (last one a month ago), seizures, non-hodgkins lymphoma, thyroid cancer s/p resection, diabetes, hypertension, hyperlipidemia, depression, small bowel obstruction, presents s/p syncopal episode and fall. Patient states she was coming home from grocery shopping at 5:30 this afternoon, and next remembers hearing voices and waking up inside the ambulance. She denies any prodromal symptoms. Denies dizziness, lightheadedness, change in vision, tinnitus, chest pain, palpitations , shortness of breath, abdominal pain, nausea. Endorses feeling confused, with nausea ad headache for one hour after regaining consciousness. Denies bladder or bowel incontinence, tongue biting. She is unsure if she hit her head. Per ED note, a witness noticed that she brought herself to the ground, however patient believes her life-alert bracelet had called for EMS after a fall. She admits she had 4 similar falls that began August 2017, and admits numerous workups that have been non-revealing to the etiology of these events. - History Source History Provided By: Patient, Medical Record - Past Medical History Cardio/Vascular: Yes: HTN, Hyperlipdemia Pulmonary: Yes: Cancer (Non-Hodgkins lymphoma (x 16 years); mesenteric artery tumor resection, chemotherapeutic meds x 3 months, no radiation therapy; thyroid cancer s/p thyroidectomy (18 months); precancerous lesion removed from under [place] (x 3 years)) Gastrointestinal: Yes: Other (small bowel obstruction x 5-6 years ago) Psych: Yes: Depression Endocrine: Yes: Diabetes Mellitus (See above) - Past Surgical History Past Surgical History: Yes: Hernia Repair. No: Vein Stripping/Ligation - Alcohol/Substance Use Hx Alcohol Use: No - Smoking History Smoking history: Never smoked Have you smoked in the past 12 months: No Aproximately how many cigarettes per day: 0 Home Medications - Allergies Allergies/Adverse Reactions: Allergies Allergy/AdvReac Type Severity Reaction Status Date / Time Penicillins Allergy Verified 04/27/18 04:48 - Home Medications Home Medications: Ambulatory Orders Amlodipine Besylate 5 mg PO DAILY 04/27/18 Cholecalciferol (Vitamin D3) [Vitamin D3] 1,000 unit PO DAILY 04/27/18 Fenofibrate Nanocrystallized [Tricor] 145 mg PO DAILY 04/27/18 Gabapentin 200 mg PO DAILY 04/27/18 Insulin Degludec [Tresiba Flextouch U-100] 16 unit SQ ACHS 04/27/18 Levothyroxine Sodium [Synthroid] 275 mcg PO DAILY 04/27/18 Lisinopril/Hydrochlorothiazide [Lisinopril-Hctz 20-25 mg Tab] 1 each PO DAILY Naltrexone HCl 25 mg PO DAILY 04/27/18 Oxcarbazepine [Trileptal] 150 mg PO DAILY 04/27/18 Sertraline HCl [Zoloft] 100 mg PO DAILY 04/27/18 Simvastatin 10 mg PO HS 04/27/18 Review of Systems - Review of Systems Constitutional: reports: No Symptoms Eyes: reports: No Symptoms HENT: reports: No Symptoms Neck: reports: No Symptoms Cardiovascular: reports: No Symptoms Respiratory: reports: No Symptoms Gastrointestinal: reports: No Symptoms Genitourinary: reports: No Symptoms Breasts: reports: No Symptoms Reported Musculoskeletal: reports: No Symptoms Integumentary: reports: No Symptoms Neurological: reports: Syncope Endocrine: reports: No Symptoms Hematology/Lymphatic: reports: No Symptoms Psychiatric: reports: No Symptoms Vital Signs: Vital Signs Temperature 97.0 F L 04/27/18 07:08 Pulse Rate 54 L 04/27/18 08:33 Respiratory Rate 16 04/27/18 07:08 Blood Pressure 142/50 L 04/27/18 08:33 O2 Sat by Pulse Oximetry (%) 100 04/27/18 07:08 Constitutional: Yes: Well Nourished, No Distress, Calm Eyes: Yes: WNL, Conjunctiva Clear, EOM Intact HENT: Yes: WNL, Atraumatic, Normocephalic Neck: Yes: WNL, Supple, Trachea Midline Respiratory: Yes: WNL, Regular, CTA Bilaterally Gastrointestinal: Yes: WNL, Normal Bowel Sounds Renal/: Yes: WNL Cardiovascular: Yes: WNL, Regular Rate and Rhythm Musculoskeletal: Yes: WNL Extremities: Yes: WNL Integumentary: Yes: WNL Neurological: Yes: WNL, Alert, Oriented ...Motor Strength: WNL Psychiatric: Yes: WNL, Alert, Oriented - Other Data Labs, Other Data: CBC, BMP 04/27/18 07:10 04/27/18 07:10 INR, PTT INR 1.10 (0.83-1.09) H 04/26/18 21:20 Troponin, BNP 04/26/18 04/26/18 04/27/18 21:20 23:11 07:10 Troponin I 0.11 H 0.11 H 0.11 H Troponin, BNP 04/26/18 04/26/18 04/27/18 21:20 23:11 07:10 Troponin I 0.11 H 0.11 H 0.11 H Laboratory Tests 04/26/18 04/26/18 04/26/18 20:12 21:20 21:20 WBC 8.4 RBC 4.24 Hgb 11.3 Hct 34.1 MCV 80.3 MCH 26.7 MCHC 33.2 RDW 15.0 Plt Count 347 MPV 6.9 L D Absolute Neuts (auto) 6.9 Neutrophils % 82.2 Lymphocytes % 12.6 Monocytes % 3.4 L Eosinophils % 1.0 Basophils % 0.8 Nucleated RBC % 0 PT with INR 13.00 INR 1.10 H Sodium Potassium Chloride Carbon Dioxide Anion Gap BUN Creatinine Creat Clearance w eGFR POC Glucometer [phone] Random Glucose Calcium Phosphorus Magnesium Total Bilirubin AST ALT Alkaline Phosphatase Creatine Kinase Troponin I Total Protein Albumin TSH Urine Color Urine Appearance Urine pH Ur Specific [place] Urine Protein Urine Glucose (UA) Urine Ketones Urine Blood Urine Nitrite Urine Bilirubin Urine Urobilinogen Ur Leukocyte Esterase Urine WBC (Auto) Urine RBC (Auto) Blood Type Antibody Screen 04/26/18 04/26/18 04/26/18 21:20 21:20 23:04 WBC RBC Hgb Hct MCV MCH MCHC RDW Plt Count MPV Absolute Neuts (auto) Neutrophils % Lymphocytes % Monocytes % Eosinophils % Basophils % Nucleated RBC % PT with INR INR Sodium 137 Potassium 4.0 Chloride 101 Carbon Dioxide 24 Anion Gap 12 BUN 20 H Creatinine 0.9 Creat Clearance w eGFR > 60 POC Glucometer Random Glucose 122 H Calcium 8.6 Phosphorus Magnesium Total Bilirubin 0.3 AST 22 ALT 25 Alkaline Phosphatase 94 Creatine Kinase 118 Troponin I 0.11 H Total Protein 8.1 Albumin 4.2 TSH Urine Color Straw Urine Appearance Clear Urine pH 8.0 D Ur Specific [place] 1.009 L Urine Protein 2+ H Urine Glucose (UA) Negative Urine Ketones Negative Urine Blood 1+ H Urine Nitrite Negative Urine Bilirubin Negative Urine Urobilinogen Negative Ur Leukocyte Esterase Negative Urine WBC (Auto) 1 Urine RBC (Auto) 4 Blood Type A POSITIVE Antibody Screen Negative 04/26/18 04/27/18 04/27/18 23:11 06:36 07:10 WBC 7.8 RBC 3.85 Hgb 10.1 L Hct 30.8 L MCV 79.9 L MCH 26.2 MCHC 32.8 RDW 15.2 Plt Count 319 MPV 6.7 L Absolute Neuts (auto) Neutrophils % Lymphocytes % Monocytes % Eosinophils % Basophils % Nucleated RBC % PT with INR INR Sodium Potassium Chloride Carbon Dioxide Anion Gap BUN Creatinine Creat Clearance w eGFR POC Glucometer 147.02875 Random Glucose Calcium Phosphorus Magnesium 2.0 Total Bilirubin AST ALT Alkaline Phosphatase Creatine Kinase Troponin I 0.11 H Total Protein Albumin TSH Urine Color Urine Appearance Urine pH Ur Specific [place] Urine Protein Urine Glucose (UA) Urine Ketones Urine Blood Urine Nitrite Urine Bilirubin Urine Urobilinogen Ur Leukocyte Esterase Urine WBC (Auto) Urine RBC (Auto) Blood Type Antibody Screen 04/27/18 04/27/18 07:10 07:10 WBC RBC Hgb Hct MCV MCH MCHC RDW Plt Count MPV Absolute Neuts (auto) Neutrophils % Lymphocytes % Monocytes % Eosinophils % Basophils % Nucleated RBC % PT with INR INR Sodium 134 L Potassium 3.6 Chloride 101 Carbon Dioxide 26 Anion Gap 7 L BUN 21 H Creatinine 1.0 Creat Clearance w eGFR 55.82 POC Glucometer Random Glucose 115 H Calcium 8.6 Phosphorus 4.4 Magnesium 2.1 Total Bilirubin 0.3 AST 18 ALT 22 Alkaline Phosphatase 77 Creatine Kinase Troponin I 0.11 H Total Protein 7.0 Albumin 3.7 TSH 0.15 L Cancelled Urine Color Urine Appearance Urine pH Ur Specific [place] Urine Protein Urine Glucose (UA) Urine Ketones Urine Blood Urine Nitrite Urine Bilirubin Urine Urobilinogen Ur Leukocyte Esterase Urine WBC (Auto) Urine RBC (Auto) Blood Type Antibody Screen Imaging - Results Chest X-ray: Image Reviewed (no i/e) EKG: Image Reviewed ( 1 [facility] gil, rbvidhi) Problem List - Problems (1) Syncope Code(s): R55 - SYNCOPE AND COLLAPSE Qualifiers: Encounter type: subsequent encounter (2) Abdominal wall hernia Code(s): K43.9 - VENTRAL HERNIA WITHOUT OBSTRUCTION OR GANGRENE (3) Abrasion of knee, left Code(s): S80.212A - ABRASION, LEFT KNEE, INITIAL ENCOUNTER (4) Bowel obstruction Code(s): K56.60 - UNSPECIFIED INTESTINAL OBSTRUCTION * DO NOT USE * Qualifiers: Intestinal obstruction type: other intestinal obstruction (5) Contusion of knee Code(s): S80.00XA - CONTUSION OF UNSPECIFIED KNEE, INITIAL ENCOUNTER (6) Contusion of scalp Code(s): S00.03XA - CONTUSION OF SCALP, INITIAL ENCOUNTER Qualifiers: Encounter type: initial encounter Qualified Code(s): S00.03XA - Contusion of scalp, initial encounter (7) Diabetes mellitus Code(s): E11.9 - TYPE 2 DIABETES MELLITUS WITHOUT COMPLICATIONS (8) Hypertension Code(s): I10 - ESSENTIAL (PRIMARY) HYPERTENSION (9) Incisional hernia Code(s): K43.2 - INCISIONAL HERNIA WITHOUT OBSTRUCTION OR GANGRENE (10) Laceration of hand Code(s): S61.419A - LACERATION WITHOUT FOREIGN BODY OF UNSP HAND, INIT ENCNTR (11) Morbid obesity Code(s): E66.01 - MORBID (SEVERE) OBESITY DUE TO EXCESS CALORIES (12) Small bowel obstruction Code(s): K56.69 - OTHER INTESTINAL OBSTRUCTION * DO NOT USE * (13) Sprain of wrist, left Code(s): S63.502A - UNSPECIFIED SPRAIN OF LEFT WRIST, INITIAL ENCOUNTER (14) Ventral hernia Code(s): K43.9 - VENTRAL HERNIA WITHOUT OBSTRUCTION OR GANGRENE Assessment/Plan seizures, non-hodgkins lymphoma, thyroid cancer s/p resection, diabetes, hypertension, hyperlipidemia, depression, small bowel obstruction, presents s/p syncopal episode and fall positive tni h/o of medtronic reveal implantation Plan telemetry neuro eval echo reveal interrogation asa ischemic w/u when stable
[2018-04-27] MEDS: LISINOPRIL 10 MG TABLET (FP) PO SCH (12:34)
[2018-04-27] MEDS: amLODIPine BESYLATE 5 MG TABLET (FP) PO SCH (12:34)
[2018-04-27] MEDS: OXcarbazepine 300 MG/5 ML 250 ML BULK BOTTLE PO SCH (12:35)
--- NOTE | 2018-04-27 14:01 | PN ---
Teaching Attending Note Name of Resident: Cici Saenz ATTENDING PHYSICIAN STATEMENT I saw and evaluated the patient. I reviewed the resident's note and discussed the case with the resident. I agree with the resident's findings and plan as documented. SUBJECTIVE: Patient is lying in bed with no acute distress. No nausea or vomiting. OBJECTIVE: Vital Signs Temperature 97.0 F L 04/27/18 07:08 Pulse Rate 54 L 04/27/18 08:33 Respiratory Rate 16 04/27/18 07:08 Blood Pressure 142/50 L 04/27/18 08:33 O2 Sat by Pulse Oximetry (%) 100 04/27/18 07:08 GENERAL: Awake, alert, and fully oriented, in no acute distress. HEAD: Normal with no signs of trauma. EYES: Pupils equal, round and reactive to light, extraocular movements intact. Sclera anicteric, conjunctiva is clear. EARS, NOSE, THROAT: Oropharynx clear without exudates. Moist mucous membranes. No tongue bite valdivia, or bleeding noted. NECK: Normal range of motion, supple without lymphadenopathy, JVD, or masses. LUNGS: Breath sounds equal, clear to auscultation bilaterally. No wheezes, and no crackles. No accessory muscle use. HEART: Regular rate and rhythm, normal S1 and S2. positive for murmur appreciated radiating to carotids b/l. ABDOMEN: Obese. Soft, nontender, not distended, normoactive bowel sounds, no guarding, no rebound, no masses. . EXTREMITIES: 2+ radial pulses b/l, warm, well-perfused. Right forearm swollen, tender to palpation. NEUROLOGICAL: Cranial nerves II-XII intact. Normal speech. Normal gait. SKIN: Warm, dry. Old, healed, vertical surgical scar noted along abdomen. Numerous scratches along b/l hands noted. CBCD WBC 7.8 K/mm3 (4.0-10.0) 04/27/18 07:10 RBC 3.85 M/mm3 (3.60-5.2) 04/27/18 07:10 Hgb 10.1 GM/dL (10.7-15.3) L 04/27/18 07:10 Hct 30.8 % (32.4-45.2) L 04/27/18 07:10 MCV 79.9 fl (80-96) L 04/27/18 07:10 MCHC 32.8 g/dl (32.0-36.0) 04/27/18 07:10 RDW 15.2 % (11.6-15.6) 04/27/18 07:10 Plt Count 319 K/MM3 (134-434) 04/27/18 07:10 MPV 6.7 fl (7.5-11.1) L 04/27/18 07:10 CMP Sodium 134 mmol/L (136-145) L 04/27/18 07:10 Potassium 3.6 mmol/L (3.5-5.1) 04/27/18 07:10 Chloride 101 mmol/L (98-107) 04/27/18 07:10 Carbon Dioxide 26 mmol/L (21-32) 04/27/18 07:10 Anion Gap 7 MMOL/L (8-16) L 04/27/18 07:10 BUN 21 mg/dL (7-18) H 04/27/18 07:10 Creatinine 1.0 mg/dL (0.55-1.3) 04/27/18 07:10 Creat Clearance w eGFR 55.82 (>60) 04/27/18 07:10 Random Glucose 115 mg/dL (74-106) H 04/27/18 07:10 Calcium 8.6 mg/dL (8.5-10.1) 04/27/18 07:10 Total Bilirubin 0.3 mg/dL (0.2-1) 04/27/18 07:10 AST 18 U/L (15-37) 04/27/18 07:10 ALT 22 U/L (13-61) 04/27/18 07:10 Alkaline Phosphatase 77 U/L (45-117) 04/27/18 07:10 Total Protein 7.0 g/dl (6.4-8.2) 04/27/18 07:10 Albumin 3.7 g/dl (3.4-5.0) 04/27/18 07:10 CARDIAC ENZYMES Creatine Kinase 118 IU/L (26-192) 04/26/18 21:20 Troponin I 0.11 ng/ml (0.00-0.05) H 04/27/18 07:10 Current Medications Generic Name Dose Route Start Last Admin Trade Name Freq PRN Reason Stop Dose Admin Acetaminophen 650 mg 04/27/18 00:50 04/27/18 11:00 Tylenol - PO 650 mg Q4H PRN Administration PAIN LEVEL 1-5 Amlodipine Besylate 5 mg 04/27/18 10:00 04/27/18 12:34 Norvasc - PO 5 mg DAILY [facility] Administration Atorvastatin Calcium 5 mg 04/27/18 22:00 Lipitor - PO HS [facility] Bisacodyl 5 mg 04/27/18 00:50 Dulcolax - PO DAILY PRN CONSTIPATION Heparin Sodium (Porcine) 5,000 unit 04/27/18 06:00 04/27/18 06:40 Heparin - SQ 5,000 unit TID [facility] Administration Insulin Aspart 1 vial 04/27/18 07:00 04/27/18 12:35 Novolog Vial Sliding Scale - SQ Not Given [facility] Protocol Levothyroxine Sodium 150 mcg 04/27/18 07:00 04/27/18 06:50 Synthroid - PO 150 mcg DAILY@0700 [facility] Administration Lisinopril 30 mg 04/27/18 10:00 04/27/18 12:34 Prinivil PO 30 mg DAILY [facility] Administration Oxcarbazepine 300 mg 04/27/18 10:00 04/27/18 12:35 Trileptal PO 300 mg DAILY [facility] Administration Oxcarbazepine 450 mg 04/27/18 22:00 Trileptal PO HS [facility] Oxycodone HCl 5 mg 04/27/18 00:58 Roxicodone - PO Q6H PRN PAIN LEVEL 6-10 Senna 2 tab 04/27/18 22:00 Senna - PO HS [facility] Home Medications Medication Instructions Recorded Amlodipine Besylate 5 mg PO DAILY 04/27/18 Cholecalciferol (Vitamin D3) 1,000 unit PO DAILY 04/27/18 [Vitamin D3] Fenofibrate Nanocrystallized 145 mg PO DAILY 04/27/18 [Tricor] Gabapentin 200 mg PO DAILY 04/27/18 Insulin Degludec [Tresiba 16 unit SQ ACHS 04/27/18 Flextouch U-100] Levothyroxine Sodium [Synthroid] 275 mcg PO DAILY 04/27/18 Lisinopril/Hydrochlorothiazide 1 each PO DAILY 04/27/18 [Lisinopril-Hctz 20-25 mg Tab] Naltrexone HCl 25 mg PO DAILY 04/27/18 Oxcarbazepine [Trileptal] 150 mg PO DAILY 04/27/18 Sertraline HCl [Zoloft] 100 mg PO DAILY 04/27/18 Simvastatin 10 mg PO HS 04/27/18 CT head negative for interracial hemorrhage (preliminary read ASSESSMENT AND PLAN: Patient is a 63 year old female with history significant for falls (last one a month ago), seizures, non-hodgkins lymphoma, thyroid cancer s/p resection, diabetes, hypertension, hyperlipidemia, depression, small bowel obstruction, presents s/p syncopal episode and fall. # Syncopal episode, fall :Neurogenic vs. cardiogenic etiology, Fall and Seizure precautions, Neuro checks Q4H, carotid doppler # Hx of seizure; On Oxcarbazepine 300mg AM, 450mg HS, neurology consult (Dr. Wolfe) #Right wrist fracture; Xray right wrist shows distal ulnar avulsion fracture. Volar splint applied in ED, ortho on the case Oxycodone 5mg PO Q6H PRN pain 6-10, colace for constipation #Troponinemia Likely demand ischemia vs. hypertensive emergency (BP upon admission was 189/71) tonny monitor , cardio on the case # Hypertenison Emergency Lisinopril and Amlodipine continue # Hyperlipidemia :Dc zocor , will add Lipitor instead , DDx with Simvastatin and Amlodipine #Thyroid CA s/p thyroidectomy on Synthroid 0.150mg PO daily continue DVt Px; Heparin sq
[2018-04-27 16:26] VITALS: BMI 36.8
[2018-04-27] MEDS ORDERED: FLU VACCINE QUAD 60 MCG/0.5 ML (MDV 18-19) IM ONE (16:28)
--- NOTE | 2018-04-27 16:30 | ECHO ---
Name: ANNETTA MAN Exam:Adult Echocardiogram Study Date: 04/27/2018 01:38 PM Age: 63 yrs Reason For Study: LVF SYNCOPE Height: 64 in Weight: 195 lb BSA: 1.9 m2 MMode/2D Measurements & Calculations IVSd: 0.97 cm Ao root diam: 2.8 cm LVIDd: 5.0 cm LA dimension: 3.7 cm LVIDs: 3.4 cm LVPWd: 0.83 cm EDV(Teich): 121.0 ml TAPSE: 2.1 cm ESV(Teich): 48.3 ml RV S Jose F: 11.3 cm/sec Doppler Measurements & Calculations MV E max jose f: 91.8 cm/sec Ao V2 max: 298.7 cm/sec MV A max jose f: 91.3 cm/sec Ao max P.8 mmHg MV E/A: 1.0 Ao V2 mean: 210.4 cm/sec MV dec time: 0.20 sec Ao mean P.4 mmHg Ao V2 VTI: 71.2 cm AI P1/2t: 427.9 msec AI max jose f: 386.0 cm/sec LV V1 max P.6 mmHg AI max P.7 mmHg LV V1 mean P.5 mmHg LV V1 max: 80.4 cm/sec AI dec slope: 264.2 cm/sec2 LV V1 mean: 58.3 cm/sec LV V1 VTI: 19.9 cm MR max jose f: 316.7 cm/sec TR max jose f: 227.3 cm/sec MR max P.1 mmHg TR max P.1 mmHg Med Peak E' Jose F: 5.4 cm/sec Med E/e': 17.1 Lat Peak E' Jose F: 6.3 cm/sec Lat E/e': 14.6 Procedure A complete two-dimensional transthoracic echocardiogram was performed (2D, M-mode, Doppler and color flow Doppler). Technically limited study. Left Ventricle The left ventricle is normal in size. Left ventricular systolic function is normal. Ejection Fraction = 55- 60%. TDI suggests impaired relaxation with med E' 5.4 and E/E' 17 c/w with elevated filling pressure. No regional wall motion abnormalities noted. Right Ventricle The right ventricle is normal size. The right ventricular systolic function is normal. RV systolic TD I is 11 cm/2. Atria The left atrial size is normal. Right atrial size is normal. Mitral Valve There is mild mitral valve thickening. There is mild mitral annular calcification. There is mild mitr al regurgitation. Tricuspid Valve The tricuspid valve is normal in structure and function. There is moderate tricuspid regurgitation. P ulmonary artery systolic pressure is at least 36 mmHg assuming RA pressure of 8 mmHg. Aortic Valve There is moderate aortic sclerosis.;. Moderate valvular aortic stenosis. Mild aortic regurgitation. Pulmonic Valve The pulmonic valve is not well visualized. Great Vessels The aortic root is normal size. Pericardium/Pleura There is no pericardial effusion. Interpretation Summary Technically limited study The left ventricle is normal in size. Left ventricular systolic function is normal. No regional wall motion abnormalities noted. Ejection Fraction = 55-60%. TDI suggests impaired relaxation with med E' 5.4 and E/E' 17 c/w with elevated filling pressure The right ventricular systolic function is normal. The left atrial size is normal. Right atrial size is normal. There is mild mitral valve thickening. There is mild mitral annular calcification. There is mild mitral regurgitation. There is moderate tricuspid regurgitation. Pulmonary artery systolic pressure is at least 36 mmHg assuming RA pressure of 8 mmHg Mild aortic regurgitation. There is moderate aortic sclerosis.; Probable moderate aortic stenosis with DI (dimensionless index) of 0.25 and mean AV gradient of 24 mm Hg and peak gradient of 44 mmHg. ETELVINA was not calculated There is no pericardial effusion. Previous study is not available for comparison Souleymane Vela MD 04/27/2018 04:30 PM
--- NOTE | 2018-04-27 19:09 | HP ---
CHIEF COMPLAINT: PCP: HISTORY OF PRESENT ILLNESS: ER course was notable for: (1) (2) (3) Recent Travel: PAST MEDICAL HISTORY: PAST SURGICAL HISTORY: Social History: Smoking: Alcohol: Drugs: Family History: Allergies Penicillins Allergy (Verified 04/27/18 04:48) HOME MEDICATIONS: Home Medications Medication Instructions Recorded Amlodipine Besylate 5 mg PO DAILY 04/27/18 Bupropion HCl [Bupropion Xl] 300 mg PO DAILY 04/27/18 Cholecalciferol (Vitamin D3) 1,000 unit PO DAILY 04/27/18 [Vitamin D3] Fenofibrate Nanocrystallized 145 mg PO DAILY 04/27/18 [Tricor] Gabapentin 100 mg PO BID 04/27/18 Gabapentin 200 mg PO DAILY 04/27/18 Insulin Degludec [Tresiba 16 unit SQ ACHS 04/27/18 Flextouch U-100] Lamotrigine 100 mg PO BID 04/27/18 Levothyroxine Sodium [Synthroid] 275 mcg PO DAILY 04/27/18 Levothyroxine [Synthroid -] 150 mcg PO DAILY 04/27/18 Lisinopril 30 mg PO DAILY 04/27/18 Lisinopril/Hydrochlorothiazide 1 each PO DAILY 04/27/18 [Lisinopril-Hctz 20-25 mg Tab] Naltrexone HCl 50 mg PO DAILY 04/27/18 Oxcarbazepine 300 mg PO BID 04/27/18 Oxcarbazepine [Trileptal] 150 mg PO DAILY 04/27/18 Pantoprazole Sodium [Protonix -] 20 mg PO DAILY 04/27/18 Sertraline HCl [Zoloft] 100 mg PO DAILY 04/27/18 Simvastatin 10 mg PO HS 04/27/18 REVIEW OF SYSTEMS CONSTITUTIONAL: Absent: fever, chills, diaphoresis, generalized weakness, malaise, loss of appetite, weight change HEENT: Absent: rhinorrhea, nasal congestion, throat pain, throat swelling, difficulty swallowing, mouth swelling, ear pain, eye pain, visual changes CARDIOVASCULAR: Absent: chest pain, syncope, palpitations, irregular heart rate, lightheadedness , peripheral edema RESPIRATORY: Absent: cough, shortness of breath, dyspnea with exertion, orthopnea, wheezing, stridor, hemoptysis GASTROINTESTINAL: Absent: abdominal pain, abdominal distension, nausea, vomiting, diarrhea, constipation, melena, hematochezia GENITOURINARY: Absent: dysuria, frequency, urgency, hesitancy, hematuria, flank pain, genital pain MUSCULOSKELETAL: Absent: myalgia, arthralgia, joint swelling, back pain, neck pain SKIN: Absent: rash, itching, pallor HEMATOLOGIC/IMMUNOLOGIC: Absent: easy bleeding, easy bruising, lymphadenopathy, frequent infections ENDOCRINE: Absent: unexplained weight gain, unexplained weight loss, heat intolerance, cold intolerance NEUROLOGIC: Absent: headache, focal weakness or paresthesias, dizziness, unsteady gait, seizure, mental status changes, bladder or bowel incontinence PSYCHIATRIC: Absent: anxiety, depression, suicidal or homicidal ideation, hallucinations. PHYSICAL EXAMINATION Vital Signs - 24 hr 04/26/18 04/26/18 04/26/18 19:10 20:13 20:15 Temperature 97.7 F 97.2 F L Pulse Rate 69 Pulse Rate [ 73 73 Apical] Pulse Rate [ Sitting] Pulse Rate [ Standing] Respiratory 17 18 17 Rate Blood Pressure 141/75 Blood Pressure 189/71 H 189/71 H [Left Arm] Blood Pressure [Sitting] Blood Pressure [Standing] O2 Sat by Pulse 97 100 100 Oximetry (%) 04/27/18 04/27/18 04/27/18 07:08 08:33 15:41 Temperature 97.0 F L 98.7 F Pulse Rate Pulse Rate [ 60 61 Apical] Pulse Rate [ 54 L Sitting] Pulse Rate [ 57 L Standing] Respiratory 16 18 Rate Blood Pressure Blood Pressure 144/57 L 151/63 [Left Arm] Blood Pressure 142/50 L [Sitting] Blood Pressure 133/60 [Standing] O2 Sat by Pulse 100 97 Oximetry (%) 04/27/18 16:31 Temperature Pulse Rate Pulse Rate [ Apical] Pulse Rate [ Sitting] Pulse Rate [ Standing] Respiratory 18 Rate Blood Pressure Blood Pressure [Left Arm] Blood Pressure [Sitting] Blood Pressure [Standing] O2 Sat by Pulse 97 Oximetry (%) GENERAL: Awake, alert, and fully oriented, in no acute distress. HEAD: Normal with no signs of trauma. EYES: Pupils equal, round and reactive to light, extraocular movements intact, sclera anicteric, conjunctiva clear. No lid lag. EARS, NOSE, THROAT: Ears normal, nares patent, oropharynx clear without exudates. Moist mucous membranes. NECK: Normal range of motion, supple without lymphadenopathy, JVD, or masses. LUNGS: Breath sounds equal, clear to auscultation bilaterally. No wheezes, and no crackles. No accessory muscle use. HEART: Regular rate and rhythm, normal S1 and S2 without murmur, rub or gallop. ABDOMEN: Soft, nontender, not distended, normoactive bowel sounds, no guarding, no rebound, no masses. No hepatomegaly or splenomegaly. MUSCULOSKELETAL: Normal range of motion at all joints. No bony deformities or tenderness. No CVA tenderness. UPPER EXTREMITIES: 2+ pulses, warm, well-perfused. No cyanosis. No clubbing. No peripheral edema. LOWER EXTREMITIES: 2+ pulses, warm, well-perfused. No calf tenderness. No peripheral edema. NEUROLOGICAL: Cranial nerves II-XII intact. Normal speech. Normal gait. PSYCHIATRIC: Cooperative. Good eye contact. Appropriate mood and affect. SKIN: Warm, dry, normal turgor, no rashes or lesions noted, normal capillary refill. Laboratory Results - last 24 hr 04/26/18 04/26/18 04/26/18 20:12 21:20 21:20 WBC 8.4 RBC 4.24 Hgb 11.3 Hct 34.1 MCV 80.3 MCH 26.7 MCHC 33.2 RDW 15.0 Plt Count 347 MPV 6.9 L D Absolute Neuts (auto) 6.9 Neutrophils % 82.2 Lymphocytes % 12.6 Monocytes % 3.4 L Eosinophils % 1.0 Basophils % 0.8 Nucleated RBC % 0 PT with INR 13.00 INR 1.10 H Sodium Potassium Chloride Carbon Dioxide Anion Gap BUN Creatinine Creat Clearance w eGFR POC Glucometer [id number] Random Glucose Calcium Phosphorus Magnesium Total Bilirubin AST ALT Alkaline Phosphatase Creatine Kinase Troponin I Total Protein Albumin TSH Urine Color Urine Appearance Urine pH Ur Specific [place] Urine Protein Urine Glucose (UA) Urine Ketones Urine Blood Urine Nitrite Urine Bilirubin Urine Urobilinogen Ur Leukocyte Esterase Urine WBC (Auto) Urine RBC (Auto) Blood Type Antibody Screen 04/26/18 04/26/18 04/26/18 21:20 21:20 23:04 WBC RBC Hgb Hct MCV MCH MCHC RDW Plt Count MPV Absolute Neuts (auto) Neutrophils % Lymphocytes % Monocytes % Eosinophils % Basophils % Nucleated RBC % PT with INR INR Sodium 137 Potassium 4.0 Chloride 101 Carbon Dioxide 24 Anion Gap 12 BUN 20 H Creatinine 0.9 Creat Clearance w eGFR > 60 POC Glucometer Random Glucose 122 H Calcium 8.6 Phosphorus Magnesium Total Bilirubin 0.3 AST 22 ALT 25 Alkaline Phosphatase 94 Creatine Kinase 118 Troponin I 0.11 H Total Protein 8.1 Albumin 4.2 TSH Urine Color Straw Urine Appearance Clear Urine pH 8.0 D Ur Specific [place] 1.009 L Urine Protein 2+ H Urine Glucose (UA) Negative Urine Ketones Negative Urine Blood 1+ H Urine Nitrite Negative Urine Bilirubin Negative Urine Urobilinogen Negative Ur Leukocyte Esterase Negative Urine WBC (Auto) 1 Urine RBC (Auto) 4 Blood Type A POSITIVE Antibody Screen Negative 04/26/18 04/27/18 04/27/18 23:11 06:36 07:10 WBC 7.8 RBC 3.85 Hgb 10.1 L Hct 30.8 L MCV 79.9 L MCH 26.2 MCHC 32.8 RDW 15.2 Plt Count 319 MPV 6.7 L Absolute Neuts (auto) Neutrophils % Lymphocytes % Monocytes % Eosinophils % Basophils % Nucleated RBC % PT with INR INR Sodium Potassium Chloride Carbon Dioxide Anion Gap BUN Creatinine Creat Clearance w eGFR POC Glucometer [phone] Random Glucose Calcium Phosphorus Magnesium 2.0 Total Bilirubin AST ALT Alkaline Phosphatase Creatine Kinase Troponin I 0.11 H Total Protein Albumin TSH Urine Color Urine Appearance Urine pH Ur Specific [place] Urine Protein Urine Glucose (UA) Urine Ketones Urine Blood Urine Nitrite Urine Bilirubin Urine Urobilinogen Ur Leukocyte Esterase Urine WBC (Auto) Urine RBC (Auto) Blood Type Antibody Screen 04/27/18 04/27/18 04/27/18 07:10 07:10 12:33 WBC RBC Hgb Hct MCV MCH MCHC RDW Plt Count MPV Absolute Neuts (auto) Neutrophils % Lymphocytes % Monocytes % Eosinophils % Basophils % Nucleated RBC % PT with INR INR Sodium 134 L Potassium 3.6 Chloride 101 Carbon Dioxide 26 Anion Gap 7 L BUN 21 H Creatinine 1.0 Creat Clearance w eGFR 55.82 POC Glucometer [id number] Random Glucose 115 H Calcium 8.6 Phosphorus 4.4 Magnesium 2.1 Total Bilirubin 0.3 AST 18 ALT 22 Alkaline Phosphatase 77 Creatine Kinase Troponin I 0.11 H Total Protein 7.0 Albumin 3.7 TSH 0.15 L Cancelled Urine Color Urine Appearance Urine pH Ur Specific [place] Urine Protein Urine Glucose (UA) Urine Ketones Urine Blood Urine Nitrite Urine Bilirubin Urine Urobilinogen Ur Leukocyte Esterase Urine WBC (Auto) Urine RBC (Auto) Blood Type Antibody Screen ASSESSMENT/PLAN:
--- NOTE | 2018-04-27 19:09 | PN ---
Physical Exam: SUBJECTIVE: Patient seen and examined this morning at bedside. Patient says she is compliant with her home dose meds. She denies any prodromal sx's prior to this episode. Denies any recent infections, medication changes or travel. Endorses increased stress lately due to her 86 y/o mother having dementia and 93 y/o father having pancreatic cancer. 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 OBJECTIVE: Vital Signs Period Temp Pulse Resp BP Sys/Amaro Pulse Ox Last 24 Hr 97.0 F-98.7 F 54-73 16-18 133-189/50-75 97-100 GENERAL: A&Ox3, NAD HEAD: NCAT EYES: PERRL, EOMI ENT: Oropharynx clear without exudates, moist mucous membranes. NECK: No JVD LUNGS: Breath sounds equal, clear to auscultation bilaterally, no wheezes HEART: Regular rate and rhythm, S1, S2, Holosystolic murmur ABDOMEN: Obese, Soft, nontender, nondistended, + bowel sounds, no guarding EXTREMITIES: 2+ radial pulses, no edema. NEUROLOGICAL: Cranial nerves II through XII grossly intact. Normal speech. Cast over RUE. C5-T1 gross sensation intact b/l. Muscle strength 5/5 in LUE and 4/5 RUE (patient says due to pain) SKIN: Warm, dry. Healed, Vertical surgical scar noted along abdomen Laboratory Results - last 24 hr 04/26/18 04/26/18 04/26/18 20:12 21:20 21:20 WBC 8.4 RBC 4.24 Hgb 11.3 Hct 34.1 MCV 80.3 MCH 26.7 MCHC 33.2 RDW 15.0 Plt Count 347 MPV 6.9 L D Absolute Neuts (auto) 6.9 Neutrophils % 82.2 Lymphocytes % 12.6 Monocytes % 3.4 L Eosinophils % 1.0 Basophils % 0.8 Nucleated RBC % 0 PT with INR 13.00 INR 1.10 H Sodium Potassium Chloride Carbon Dioxide Anion Gap BUN Creatinine Creat Clearance w eGFR POC Glucometer [id number] Random Glucose Calcium Phosphorus Magnesium Total Bilirubin AST ALT Alkaline Phosphatase Creatine Kinase Troponin I Total Protein Albumin TSH Urine Color Urine Appearance Urine pH Ur Specific [place] Urine Protein Urine Glucose (UA) Urine Ketones Urine Blood Urine Nitrite Urine Bilirubin Urine Urobilinogen Ur Leukocyte Esterase Urine WBC (Auto) Urine RBC (Auto) Blood Type Antibody Screen 04/26/18 04/26/18 04/26/18 21:20 21:20 23:04 WBC RBC Hgb Hct MCV MCH MCHC RDW Plt Count MPV Absolute Neuts (auto) Neutrophils % Lymphocytes % Monocytes % Eosinophils % Basophils % Nucleated RBC % PT with INR INR Sodium 137 Potassium 4.0 Chloride 101 Carbon Dioxide 24 Anion Gap 12 BUN 20 H Creatinine 0.9 Creat Clearance w eGFR > 60 POC Glucometer Random Glucose 122 H Calcium 8.6 Phosphorus Magnesium Total Bilirubin 0.3 AST 22 ALT 25 Alkaline Phosphatase 94 Creatine Kinase 118 Troponin I 0.11 H Total Protein 8.1 Albumin 4.2 TSH Urine Color Straw Urine Appearance Clear Urine pH 8.0 D Ur Specific [place] 1.009 L Urine Protein 2+ H Urine Glucose (UA) Negative Urine Ketones Negative Urine Blood 1+ H Urine Nitrite Negative Urine Bilirubin Negative Urine Urobilinogen Negative Ur Leukocyte Esterase Negative Urine WBC (Auto) 1 Urine RBC (Auto) 4 Blood Type A POSITIVE Antibody Screen Negative 04/26/18 04/27/18 04/27/18 23:11 06:36 07:10 WBC 7.8 RBC 3.85 Hgb 10.1 L Hct 30.8 L MCV 79.9 L MCH 26.2 MCHC 32.8 RDW 15.2 Plt Count 319 MPV 6.7 L Absolute Neuts (auto) Neutrophils % Lymphocytes % Monocytes % Eosinophils % Basophils % Nucleated RBC % PT with INR INR Sodium Potassium Chloride Carbon Dioxide Anion Gap BUN Creatinine Creat Clearance w eGFR POC Glucometer 147.84229 Random Glucose Calcium Phosphorus Magnesium 2.0 Total Bilirubin AST ALT Alkaline Phosphatase Creatine Kinase Troponin I 0.11 H Total Protein Albumin TSH Urine Color Urine Appearance Urine pH Ur Specific [place] Urine Protein Urine Glucose (UA) Urine Ketones Urine Blood Urine Nitrite Urine Bilirubin Urine Urobilinogen Ur Leukocyte Esterase Urine WBC (Auto) Urine RBC (Auto) Blood Type Antibody Screen 04/27/18 04/27/18 04/27/18 07:10 07:10 12:33 WBC RBC Hgb Hct MCV MCH MCHC RDW Plt Count MPV Absolute Neuts (auto) Neutrophils % Lymphocytes % Monocytes % Eosinophils % Basophils % Nucleated RBC % PT with INR INR Sodium 134 L Potassium 3.6 Chloride 101 Carbon Dioxide 26 Anion Gap 7 L BUN 21 H Creatinine 1.0 Creat Clearance w eGFR 55.82 POC Glucometer 119.47152 Random Glucose 115 H Calcium 8.6 Phosphorus 4.4 Magnesium 2.1 Total Bilirubin 0.3 AST 18 ALT 22 Alkaline Phosphatase 77 Creatine Kinase Troponin I 0.11 H Total Protein 7.0 Albumin 3.7 TSH 0.15 L Cancelled Urine Color Urine Appearance Urine pH Ur Specific [place] Urine Protein Urine Glucose (UA) Urine Ketones Urine Blood Urine Nitrite Urine Bilirubin Urine Urobilinogen Ur Leukocyte Esterase Urine WBC (Auto) Urine RBC (Auto) Blood Type Antibody Screen Active Medications Acetaminophen (Tylenol -) 650 mg PO Q4H PRN PRN Reason: PAIN LEVEL 1-5 Last Admin: 04/27/18 11:00 Dose: 650 mg Amlodipine Besylate (Norvasc -) 5 mg PO DAILY [facility] Last Admin: 04/27/18 12:34 Dose: 5 mg Atorvastatin Calcium (Lipitor -) 5 mg PO [facility] Bisacodyl (Dulcolax -) 5 mg PO DAILY PRN PRN Reason: CONSTIPATION Heparin Sodium (Porcine) (Heparin -) 5,000 unit SQ TID [facility] Last Admin: 04/27/18 16:38 Dose: Not Given Insulin Aspart (Novolog Vial Sliding Scale -) 1 vial SQ [facility]; Protocol Last Admin: 04/27/18 17:10 Dose: Not Given Levothyroxine Sodium (Synthroid -) 150 mcg PO DAILY@0700 [facility] Last Admin: 04/27/18 06:50 Dose: 150 mcg Lisinopril (Prinivil) 30 mg PO DAILY [facility] Last Admin: 04/27/18 12:34 Dose: 30 mg Oxcarbazepine (Trileptal) 300 mg PO DAILY [facility] Last Admin: 04/27/18 12:35 Dose: 300 mg Oxcarbazepine (Trileptal) 450 mg PO [facility] Oxycodone HCl (Roxicodone -) 5 mg PO Q6H PRN PRN Reason: PAIN LEVEL 6-10 Senna (Senna -) 2 tab PO [facility] IMAGING: -CXR: No acute pathology. Recorded device. Right clips. Previous right humeral surgery. Clear lungs. -CT Head without contrast: No evidence of acute intracranial hemorrhage, edema, midline shift, mass effect, or skull fracture. No CT evidence of acute territorial ischemic changes. -R Wrist XRay: 3 views of the right wrist reveal a distal ulnar fracture with swelling. There may be a subtle radial styloid fracture as well. -Carotid US: Mild intimal thickening and minimal plaque buildup at the right common carotid bifurcation and bulb without evidence of hemodynamically significant stenosis, bilaterally. -EKG: SINUS RHYTHM WITH 1ST DEGREE A-V BLOCK, RIGHT BUNDLE BRANCH BLOCK, MINIMAL VOLTAGE CRITERIA FOR LVH, VR 70, QTc 475 -ECHO: LV is normal in size, LVSF is normal, No regional wall motion abnormalities, EF 55-60%, TDI suggests impaired relaxtion with elevated filling pressure, RVSF is normal, LA size is normal, RA size is normal Mild AR & MR, Moderate TR & , No pericardial effusion ASSESSMENT/PLAN: 63 y/o F with PMHx of multiple falls (last one a month ago), seizures, non- hodgkins lymphoma, thyroid cancer s/p resection, Dm, HTN, HLD, Depression, SBO presents s/p syncopal episode and fall. #Syncopal episode, fall -Neurogenic vs. cardiogenic etiology -Obtain records from outpatient neurologist/ [facility] -CT Head without contrast: No evidence of acute intracranial hemorrhage, edema, midline shift, mass effect, or skull fracture. No CT evidence of acute territorial ischemic changes. -Orthostatic BP -Fall precautions -Seizure precautions -Neuro checks Q4H -Continue Oxcarbazepine 300mg AM, 450mg HS -Carotid US: Without evidence of hemodynamically significant stenosis, bilaterally. -Neurology (Dr. Lainez) consulted, Appreciate rec's, Continue current seizure medications, F/U cardiac work up including orthostatics, Increased hydration recommended, Tele monitoring #Right wrist fracture -R Wrist XRay: Distal ulnar fracture with swelling. There may be a subtle radial styloid fracture as well. -Volar splint applied in ED -Orthopedic (Dr. Orona) consulted -Pain control via Tylenol, Oxycodone -Bowel regimen via Dulcolax, Senna #Troponinemia -Likely demand ischemia; Still consider hypertensive emergency (189/71 on admission) -EKST DEGREE A-V BLOCK, RBBB, VR 70, QTc 475 -Trops 0.11 x 3 -Cardiology (Dr. Oviedo) consulted, Appreciate rec's, reveal interrogation , asa, ischemic w/u when stable -ECHO: LV is normal in size, LVSF is normal, No regional wall motion abnormalities, EF 55-60%, TDI suggests impaired relaxtion with elevated filling pressure, RVSF is normal, LA size is normal, RA size is normal Mild AR & MR, Moderate TR & , No pericardial effusion #HTN -Continue Lisinopril, Amlodipine #HLD -Home dose Simvastatin changed to Lipitor #Thyroid CA s/p thyroidectomy -Continue Synthroid 150mcg PO daily #FEN -PO fluids -Lytes wnl -Diabetic diet #PPX -DVT: Heparin Dispo: Obs, med-surg Visit type - Emergency Visit Emergency Visit: Yes ED Registration Date: 04/26/18 Care time: The patient presented to the Emergency Department on the above date and was hospitalized for further evaluation of their emergent condition. - New Patient This patient is new to me today: No - Critical Care Critical Care patient: No - Discharge Referral Referred to [facility] Med P.C.: No
[2018-04-27] MEDS ORDERED: PT OWN MED DRAWER 7, Y5N ONE (21:50)
[2018-04-27] MEDS ORDERED: ATORVASTATIN CA 10 MG TABLET (FP) PO SCH (22:00)
[2018-04-27] MEDS ORDERED: OXcarbazepine 300 MG/5 ML 250 ML BULK BOTTLE PO SCH (22:00)
[2018-04-27] MEDS ORDERED: SENNOSIDES 8.6MG TABLET (FP) PO SCH (22:00)
[2018-04-28 02:41] VITALS: TEMP 97.4
[2018-04-28] MEDS: ACETAMINOPHEN 325 MG TABLET (FP) PO PRN (05:13)
[2018-04-28] MEDS: HEPARIN NA (PORCINE) 5,000 UNITS/ML 1ML VIAL SQ SCH (05:14)
[2018-04-28 06:37] LABS: BASO % 0.9 % (0-2.0); EOS % 5.2 % (0-4.5); HEMATOCRIT 31.9 % (32.4-45.2); HEMOGLOBIN 10.4 GM/dL (10.7-15.3); LYMPH % 37.1 % (8-40); MCH 26.4 pg (25.7-33.7); MCHC 32.6 g/dl (32.0-36.0); MEAN PLT VOLUME 7.1 fl (7.5-11.1); MONO % 6.9 % (3.8-10.2); NEUT % 49.9 % (42.8-82.8); PLATELET COUNT 307 K/MM3 (134-434); RBC 3.93 M/mm3 (3.60-5.2); RDW 14.8 % (11.6-15.6); WHITE BLOOD COUNT 6.1 K/mm3 (4.0-10.0)
[2018-04-28] MEDS: LEVOTHYROXINE NA 150 MCG TABLET PO SCH (06:37)
[2018-04-28] MEDS: INSULIN SLIDING SCALE (NOVOLOG) 1 VIAL SQ SCH ×2 (06:37→12:57)
[2018-04-28 07:20] LABS: ALK PHOS 81 U/L (45-117); ANION GAP 12 MMOL/L (8-16); BILIRUBIN,TOTAL 0.3 mg/dL (0.2-1); BLOOD UREA NITROGEN 18 mg/dL (7-18); CALCIUM 8.5 mg/dL (8.5-10.1); CHLORIDE 99 mmol/L (98-107); CO2 25 mmol/L (21-32); CREATININE 0.7 mg/dL (0.55-1.3); GLUCOSE,RANDOM 89 mg/dL (74-106); MAGNESIUM 1.9 mg/dL (1.8-2.4); PHOSPHOROUS 4.2 mg/dL (2.5-4.9); POTASSIUM 3.8 mmol/L (3.5-5.1); SGOT/AST 14 U/L (15-37); SGPT/ALT 21 U/L (13-61); SODIUM 136 mmol/L (136-145); TOT PROT 7.2 g/dl (6.4-8.2)
--- NOTE | 2018-04-28 08:51 | PN ---
Progress Note (short form) - Note Progress Note: Neurology HISTORY OF PRESENT ILLNESS: 63 year old female with history significant for falls (last one a month ago), reported seizures, non-hodgkins lymphoma, thyroid cancer s/p resection, diabetes , hypertension, hyperlipidemia, depression, small bowel obstruction, presents s/ p syncopal episode and fall. Patient stated she was coming home from grocery shopping at 5:30pm on day of admission, and next remembers hearing voices and waking up inside the ambulance. She denied any prodromal symptoms. Denied dizziness, lightheadedness, change in vision, tinnitus, chest pain, palpitations , shortness of breath, abdominal pain, nausea. Endorsed feeling confused, with nausea and headache for one hour after regaining consciousness. Denied bladder or bowel incontinence, tongue biting. She is unsure if she hit her head. Reportedly had 4 similar falls that began August 2017, and admited numerous workups that have been non-revealing to the etiology of these events. EKG with reported NSR at 70bpm, borderline first degree heart block, RBBB. CT head without acute changes, Fracture of right distal ulna on xray, patient in ER with cast on arm. Patient reports most recently having 5 days of EEG monitoring and did not show epileptiform activty. She takes trileptal 450 and 300 and follows up with epileptoligist. Does not seem to have symptoms consistent with seizure and seems more syncopal. Carotids reviewed and mild thickening, minimal plaque. echo also completed with normal LV size and EF of 55-60%, normal function. Extensive conversation with patient about her seizure diagnosis today and she will follow up with her outpatient neurologist. Allergies Penicillins Allergy (Verified 04/26/18 19:44) Active Medications Acetaminophen (Tylenol -) 650 mg PO Q4H PRN PRN Reason: PAIN LEVEL 1-5 Last Admin: 04/28/18 05:13 Dose: 650 mg Amlodipine Besylate (Norvasc -) 5 mg PO DAILY [facility] Last Admin: 04/27/18 12:34 Dose: 5 mg Atorvastatin Calcium (Lipitor -) 5 mg PO HS [facility] Last Admin: 04/27/18 22:00 Dose: 5 mg Heparin Sodium (Porcine) (Heparin -) 5,000 unit SQ TID [facility] Last Admin: 04/28/18 05:14 Dose: 5,000 unit Insulin Aspart (Novolog Vial Sliding Scale -) 1 vial SQ [facility]; Protocol Last Admin: 04/28/18 06:37 Dose: Not Given Levothyroxine Sodium (Synthroid -) 150 mcg PO DAILY@0700 [facility] Last Admin: 04/28/18 06:37 Dose: 150 mcg Lisinopril (Prinivil) 30 mg PO DAILY [facility] Last Admin: 04/27/18 12:34 Dose: 30 mg Oxcarbazepine (Trileptal) 300 mg PO DAILY [facility] Last Admin: 04/27/18 12:35 Dose: 300 mg Oxcarbazepine (Trileptal) 450 mg PO [facility] Last Admin: 04/27/18 21:59 Dose: 450 mg Oxycodone HCl (Roxicodone -) 5 mg PO Q6H PRN PRN Reason: PAIN LEVEL 6-10 Senna (Senna -) 2 tab PO [facility] Last Admin: 04/27/18 21:59 Dose: 2 tab PHYSICAL EXAMINATION Vital Signs Period Temp Pulse Resp BP Sys/Amaro Pulse Ox Last 24 Hr 97.4 F-98.7 F 55-61 18-20 118-157/63-74 97-98 GENERAL: Awake, alert, and fully oriented, in no acute distress. HEAD: Normal with no signs of trauma. EYES: Pupils equal, round and reactive to light, extraocular movements intact without nystagmus. Sclera anicteric, conjunctiva noninjected b/l. EARS, NOSE, THROAT: Oropharynx clear without exudates. Moist mucous membranes. No tongue bite valdivia, or bleeding noted. NECK: Normal range of motion, supple without lymphadenopathy, JVD, or masses. LUNGS: Breath sounds equal, clear to auscultation bilaterally. No wheezes, and no crackles. No accessory muscle use. HEART: Regular rate and rhythm, normal S1 and S2. Holosystolic murmur appreciated radiating to carotids b/l. ABDOMEN: Obese. Soft, nontender, not distended, normoactive bowel sounds, no guarding, no rebound, no masses. No hepatomegaly palpated. MUSCULOSKELETAL: Normal range of motion at all joints. No bony deformities or tenderness. No CVA tenderness. UPPER EXTREMITIES: 2+ radial pulses b/l, warm, well-perfused. Right forearm swollen, tender to palpation. LOWER EXTREMITIES: 2+ dorsalsi pedis pulses b/l, warm, well-perfused. No calf tenderness. No peripheral edema b/l. NEUROLOGICAL: Cranial nerves II-XII intact. Normal speech. Normal gait. Strength 5/5 left upper extremity, 4/5 right upper extremity (limited by pain in right forearm). Strength 5/5 b/l lower extremities. PSYCHIATRIC: Cooperative. Appropriate mood and affect upon my encounter today. SKIN: Warm, dry. Old, healed, vertical surgical scar noted along abdomen. Numerous scratches along b/l hands noted. CBCD WBC 6.1 K/mm3 (4.0-10.0) 04/28/18 05:30 RBC 3.93 M/mm3 (3.60-5.2) 04/28/18 05:30 Hgb 10.4 GM/dL (10.7-15.3) L 04/28/18 05:30 Hct 31.9 % (32.4-45.2) L 04/28/18 05:30 MCV 81.0 fl (80-96) 04/28/18 05:30 MCHC 32.6 g/dl (32.0-36.0) 04/28/18 05:30 RDW 14.8 % (11.6-15.6) 04/28/18 05:30 Plt Count 307 K/MM3 (134-434) 04/28/18 05:30 MPV 7.1 fl (7.5-11.1) L 04/28/18 05:30 CMP Sodium 136 mmol/L (136-145) 04/28/18 05:30 Potassium 3.8 mmol/L (3.5-5.1) 04/28/18 05:30 Chloride 99 mmol/L (98-107) 04/28/18 05:30 Carbon Dioxide 25 mmol/L (21-32) 04/28/18 05:30 Anion Gap 12 MMOL/L (8-16) 04/28/18 05:30 BUN 18 mg/dL (7-18) 04/28/18 05:30 Creatinine 0.7 mg/dL (0.55-1.3) 04/28/18 05:30 Creat Clearance w eGFR > 60 (>60) 04/28/18 05:30 Random Glucose 89 mg/dL (74-106) 04/28/18 05:30 Calcium 8.5 mg/dL (8.5-10.1) 04/28/18 05:30 Total Bilirubin 0.3 mg/dL (0.2-1) 04/28/18 05:30 AST 14 U/L (15-37) L 04/28/18 05:30 ALT 21 U/L (13-61) 04/28/18 05:30 Alkaline Phosphatase 81 U/L (45-117) 04/28/18 05:30 Total Protein 7.2 g/dl (6.4-8.2) 04/28/18 05:30 Albumin 4.0 g/dl (3.4-5.0) 04/28/18 05:30 CARDIAC ENZYMES Creatine Kinase 118 IU/L (26-192) 04/26/18 21:20 Troponin I 0.11 ng/ml (0.00-0.05) H 04/27/18 07:10 ASSESSMENT/PLAN: 63 year old female with history significant for falls (last one a month ago), reported seizures, non-hodgkins lymphoma, thyroid cancer s/p resection, diabetes , hypertension, hyperlipidemia, depression, small bowel obstruction, presents s/ p syncopal episode and fall. Denied bladder or bowel incontinence, tongue biting. EKG with reported NSR at 70bpm, borderline first degree heart block, RBBB. CT head without acute changes, Fracture of right distal ulna on xray, patient in ER with cast on arm. Patient reports most recently having 5 days of EEG monitoring and did not show epileptiform activty. She takes trileptal 450 and 300 and follows up with epileptoligist. Does not seem to have symptoms consistent with seizure and seems more syncopal. Can continue current seizure medication and dose. Ongoing cardiac work up, carotids and echo reviewed and discussed with patient in detail. Monitor bp, maintain normotensive range. Currently on Lisinopril and Amlodipine. Increased hydration recommended. Follow up tele monitoring. Follow up RUE fx. Pain control. Avoid subsequent falls/ trauma. Follow up with outpatient neurologist.
--- NOTE | 2018-04-28 09:28 | PN ---
Progress Note, Physician Chief Complaint: Pt A&Ox3; sitting up at bedside. No dizziness, chest pain palpitations, dyspnea. - Current Medication List Current Medications: Active Medications Acetaminophen (Tylenol -) 650 mg PO Q4H PRN PRN Reason: PAIN LEVEL 1-5 Last Admin: 04/28/18 05:13 Dose: 650 mg Amlodipine Besylate (Norvasc -) 5 mg PO DAILY [facility] Last Admin: 04/27/18 12:34 Dose: 5 mg Atorvastatin Calcium (Lipitor -) 5 mg PO HS [facility] Last Admin: 04/27/18 22:00 Dose: 5 mg Heparin Sodium (Porcine) (Heparin -) 5,000 unit SQ TID [facility] Last Admin: 04/28/18 05:14 Dose: 5,000 unit Insulin Aspart (Novolog Vial Sliding Scale -) 1 vial SQ [facility]; Protocol Last Admin: 04/28/18 06:37 Dose: Not Given Levothyroxine Sodium (Synthroid -) 150 mcg PO DAILY@0700 [facility] Last Admin: 04/28/18 06:37 Dose: 150 mcg Lisinopril (Prinivil) 30 mg PO DAILY [facility] Last Admin: 04/27/18 12:34 Dose: 30 mg Oxcarbazepine (Trileptal) 300 mg PO DAILY [facility] Last Admin: 04/27/18 12:35 Dose: 300 mg Oxcarbazepine (Trileptal) 450 mg PO [facility] Last Admin: 04/27/18 21:59 Dose: 450 mg Oxycodone HCl (Roxicodone -) 5 mg PO Q6H PRN PRN Reason: PAIN LEVEL 6-10 Senna (Senna -) 2 tab PO [facility] Last Admin: 04/27/18 21:59 Dose: 2 tab - Objective Vital Signs: Vital Signs Temperature 97.4 F L 04/28/18 02:00 Pulse Rate 55 L 04/28/18 06:00 Respiratory Rate 20 04/28/18 06:00 Blood Pressure 143/69 04/28/18 06:00 O2 Sat by Pulse Oximetry (%) 98 04/27/18 20:26 Constitutional: Yes: Calm Labs: CBC, BMP 04/28/18 05:30 04/28/18 05:30 INR, PTT INR 1.10 (0.83-1.09) H 04/26/18 21:20 Problem List - Problems (1) Obesity Code(s): E66.9 - OBESITY, UNSPECIFIED (2) Syncope Assessment/Plan: Reveal monitor interrogated: no arrhythmias or pauses. Telemetry: NSR; 1st degree AVB; RBBB; periods of bradycardia. f/u free T4 and T3 (TSH low). Orthostatic vital signs. Encourage hydration (pt says she always walks "with a water bottle in my hand"). Carotid artery US: mild ASHD without stenoses. ECHO: Norlmal LVEF; moderate aortic stenosis. Pt may be followed as outpatient from cardiac perspecitve. Check if pt had treadmill stress test under close supervision for valvular (moderate aortic stenosis) response to exertion; if not, this should be considered (as outpatient ), Pt does says that, until a few weeks ago when rogelio knee began bothering her, she was walking on a treadmill for 45 minute daily sessions without dyspnea, dizziness, palpitations, or chest pain. From a cardiac perspecitve, pt may be followed as outpatient by her [employer] (Dr. Burgess; [place]). Code(s): R55 - SYNCOPE AND COLLAPSE Qualifiers: Encounter type: subsequent encounter (3) Diabetes mellitus Code(s): E11.9 - TYPE 2 DIABETES MELLITUS WITHOUT COMPLICATIONS (4) Hypertension Code(s): I10 - ESSENTIAL (PRIMARY) HYPERTENSION (5) Incisional hernia Code(s): K43.2 - INCISIONAL HERNIA WITHOUT OBSTRUCTION OR GANGRENE
--- NOTE | 2018-04-28 10:19 | CONSULT ---
Consult - text type - Consultation Consultation Note: This is a 63-year-old female who has suffered from multiple falls secondary to syncopal episodes. On this most recent fall, she fell, injuring her wrist. She was found to have a wrist fracture. Orthopedic consultation was called. She denies any pain elsewhere. She denies any radiating pain, numbness or tingling. She does have a history of knee arthritis and is scheduled for total knee replacement in the near future. Medications reviewed as in chart. Allergies include penicillin. Physical examination: This is a well-appearing female in no acute distress. She is lying in hospital bed. Examination of the left upper need them straits no skin lesions. There is mild swelling. There is tenderness over the distal radius and ulna. The elbow is nontender. There is full range motion of the fingers. Distally sensation is intact light touch. 2+ pedal pulse. Intact distal motor. Radiographs: Films of the wrist demonstrate a nondisplaced fracture of the radial styloid and a minimally displaced fracture of the distal ulna. Assessment: Wrist fracture Plan: I reviewed today's findings with Hilda. Her wrist fracture is in a suitable position for nonoperative care. She was placed into a thumb spica cast. I anticipate 6-8 weeks of casting. She should elevate the limb for any swelling. We discussed signs of a too tight cast. I reviewed cast care with her. She should participate in range of motion exercises for her fingers. I discussed that she will need physical therapy/occupational therapy following removal of her cast. She should have a follow-up x-ray in 7-10 days. She is stable for discharge.
[2018-04-28] MEDS: OXcarbazepine 300 MG/5 ML 250 ML BULK BOTTLE PO SCH (10:55)
[2018-04-28] MEDS: LISINOPRIL 10 MG TABLET (FP) PO SCH (10:55)
[2018-04-28] MEDS: amLODIPine BESYLATE 5 MG TABLET (FP) PO SCH (10:55)
[2018-04-28 11:40] VITALS: BP 137/66; PULSE 58
--- NOTE | 2018-04-28 13:22 | PN ---
Teaching Attending Note Name of Resident: Cici Saenz ATTENDING PHYSICIAN STATEMENT I saw and evaluated the patient. I reviewed the resident's note and discussed the case with the resident. I agree with the resident's findings and plan as documented. SUBJECTIVE: Patient is comfortable with no acute distress, No shortness of breath , no nausea or vomiting. OBJECTIVE: Vital Signs Temperature 97.4 F L 04/28/18 02:00 Pulse Rate 58 L 04/28/18 11:38 Respiratory Rate 20 04/28/18 06:00 Blood Pressure 137/66 04/28/18 11:38 O2 Sat by Pulse Oximetry (%) 98 04/27/18 20:26 GENERAL: Awake, alert, and fully oriented, in no acute distress. HEAD: Normal with no signs of trauma. EYES: Pupils equal, round and reactive to light, extraocular movements intact. Sclera anicteric, conjunctiva is clear. EARS, NOSE, THROAT: Oropharynx clear without exudates. Moist mucous membranes. No tongue bite valdivia, or bleeding noted. NECK: Normal range of motion, supple without lymphadenopathy, JVD, or masses. LUNGS: Breath sounds equal, clear to auscultation bilaterally. No wheezes, and no crackles. No accessory muscle use. HEART: Regular rate and rhythm, normal S1 and S2. positive for murmur appreciated radiating to carotids b/l. ABDOMEN: Obese. Soft, nontender, not distended, normoactive bowel sounds, no guarding, no rebound, no masses. . EXTREMITIES: 2+ radial pulses b/l, warm, well-perfused. Right forearm swollen, tender to palpation. NEUROLOGICAL: Cranial nerves II-XII intact. Normal speech. Normal gait. SKIN: Warm, dry. Old, healed, vertical surgical scar noted along abdomen. Numerous scratches along b/l hands noted. CBCD WBC 6.1 K/mm3 (4.0-10.0) 04/28/18 05:30 RBC 3.93 M/mm3 (3.60-5.2) 04/28/18 05:30 Hgb 10.4 GM/dL (10.7-15.3) L 04/28/18 05:30 Hct 31.9 % (32.4-45.2) L 04/28/18 05:30 MCV 81.0 fl (80-96) 04/28/18 05:30 MCHC 32.6 g/dl (32.0-36.0) 04/28/18 05:30 RDW 14.8 % (11.6-15.6) 04/28/18 05:30 Plt Count 307 K/MM3 (134-434) 04/28/18 05:30 MPV 7.1 fl (7.5-11.1) L 04/28/18 05:30 CMP Sodium 136 mmol/L (136-145) 04/28/18 05:30 Potassium 3.8 mmol/L (3.5-5.1) 04/28/18 05:30 Chloride 99 mmol/L (98-107) 04/28/18 05:30 Carbon Dioxide 25 mmol/L (21-32) 04/28/18 05:30 Anion Gap 12 MMOL/L (8-16) 04/28/18 05:30 BUN 18 mg/dL (7-18) 04/28/18 05:30 Creatinine 0.7 mg/dL (0.55-1.3) 04/28/18 05:30 Creat Clearance w eGFR > 60 (>60) 04/28/18 05:30 Random Glucose 89 mg/dL (74-106) 04/28/18 05:30 Calcium 8.5 mg/dL (8.5-10.1) 04/28/18 05:30 Total Bilirubin 0.3 mg/dL (0.2-1) 04/28/18 05:30 AST 14 U/L (15-37) L 04/28/18 05:30 ALT 21 U/L (13-61) 04/28/18 05:30 Alkaline Phosphatase 81 U/L (45-117) 04/28/18 05:30 Total Protein 7.2 g/dl (6.4-8.2) 04/28/18 05:30 Albumin 4.0 g/dl (3.4-5.0) 04/28/18 05:30 CARDIAC ENZYMES Creatine Kinase 118 IU/L (26-192) 04/26/18 21:20 Troponin I 0.11 ng/ml (0.00-0.05) H 04/27/18 07:10 Current Medications Generic Name Dose Route Start Last Admin Trade Name Freq PRN Reason Stop Dose Admin Acetaminophen 650 mg 04/27/18 00:50 04/28/18 05:13 Tylenol - PO 650 mg Q4H PRN Administration PAIN LEVEL 1-5 Amlodipine Besylate 5 mg 04/27/18 10:00 04/28/18 10:55 Norvasc - PO 5 mg DAILY BETH Administration Atorvastatin Calcium 5 mg 04/27/18 22:00 04/27/18 22:00 Lipitor - PO 5 mg HS BETH Administration Heparin Sodium (Porcine) 5,000 unit 04/27/18 06:00 04/28/18 05:14 Heparin - SQ 5,000 unit TID [facility] Administration Insulin Aspart 1 vial 04/27/18 07:00 04/28/18 12:57 Novolog Vial Sliding Scale - SQ Not Given [facility] Protocol Levothyroxine Sodium 150 mcg 04/27/18 07:00 04/28/18 06:37 Synthroid - PO 150 mcg DAILY@0700 [facility] Administration Lisinopril 30 mg 04/27/18 10:00 04/28/18 10:55 Prinivil PO 30 mg DAILY [facility] Administration Oxcarbazepine 300 mg 04/27/18 10:00 04/28/18 10:55 Trileptal PO Not Given DAILY [facility] Oxcarbazepine 450 mg 04/27/18 22:00 04/27/18 21:59 Trileptal PO 450 mg HS [facility] Administration Oxycodone HCl 5 mg 04/27/18 00:58 Roxicodone - PO Q6H PRN PAIN LEVEL 6-10 Senna 2 tab 04/27/18 22:00 04/27/18 21:59 Senna - PO 2 tab HS [facility] Administration Home Medications Medication Instructions Recorded Amlodipine Besylate 5 mg PO DAILY 04/27/18 Bupropion HCl [Bupropion Xl] 300 mg PO DAILY 04/27/18 Fenofibrate Nanocrystallized 145 mg PO DAILY 04/27/18 [Tricor] Gabapentin 100 mg PO BID 04/27/18 Insulin Degludec [Tresiba 16 unit SQ ACHS 04/27/18 Flextouch U-100] Lamotrigine 100 mg PO BID 04/27/18 Levothyroxine [Synthroid -] 150 mcg PO DAILY 04/27/18 Lisinopril 30 mg PO DAILY 04/27/18 Naltrexone HCl 50 mg PO DAILY 04/27/18 Oxcarbazepine 300 mg PO BID 04/27/18 Pantoprazole Sodium [Protonix -] 20 mg PO DAILY 04/27/18 Sertraline HCl [Zoloft] 100 mg PO DAILY 04/27/18 Aspirin [ASA -] 81 mg PO DAILY #30 tab.chew 04/28/18 Atorvastatin Ca [Lipitor] 5 mg PO HS #30 tablet 04/28/18 Telemetry: NSR; 1st degree AVB; RBBB; periods of bradycardia. CT head negative for interracial hemorrhage (preliminary read ASSESSMENT AND PLAN: Patient is a 63 year old female with history significant for falls (last one a month ago), seizures, non-hodgkins lymphoma, thyroid cancer s/p resection, diabetes, hypertension, hyperlipidemia, depression, small bowel obstruction, presents s/p syncopal episode and fall. # Syncopal episode, fall : Event monitor is interrogated: no arrhythmias or pauses is seen, No orthostatic is noted, discussed with referral manager , patient needs to follow with her own referral manager (Dr. Burgess; [place]). ECHO: Norlmal LVEF; moderate aortic stenosis, Carotid artery US: mild ASHD without stenoses. As per referral manager : patient needs to have a treadmill stress test under close supervision for valvular (moderate aortic stenosis) response to exertion;this should be considered (as outpatient). F/u free T4 and T3 (TSH low) . Encourage hydration (pt says she always walks "with a water bottle in my hand"). # Hx of seizure; On Oxcarbazepine 300mg AM, 450mg HS, neurology consult (Dr. Wolfe) #Right wrist fracture; Xray right wrist shows distal ulnar avulsion fracture. Volar splint applied in ED, ortho on the case Oxycodone 5mg PO Q6H PRN pain 6-10, colace for constipation #Troponinemia Likely demand ischemia vs. hypertensive emergency (BP upon admission was 189/71) tonny monitor , cardio on the case # Hypertenison Emergency Lisinopril and Amlodipine continue # Hyperlipidemia :Dc zocor , will add Lipitor instead , DDx with Simvastatin and Amlodipine #Thyroid CA s/p thyroidectomy on Synthroid 0.150mg PO daily continue DVt Px; Heparin sq
--- NOTE | 2018-04-28 14:12 | DS ---
Physical Exam: SUBJECTIVE: Patient seen and examined this morning. Says the pain is improving. Denies any new complaints including loss of sensation, weakness, fevers, chills , chest pain, SOB, numbness or tingling. OBJECTIVE: Vital Signs Period Temp Pulse Resp BP Sys/Amaro Pulse Ox Last 24 Hr 97.4 F-98.7 F 55-61 18-20 118-157/63-74 97-98 PHYSICAL EXAM GENERAL: A&Ox3, NAD HEAD: NCAT EYES: PERRL, EOMI ENT: Oropharynx clear without exudates, moist mucous membranes. NECK: No JVD LUNGS: Breath sounds equal, clear to auscultation bilaterally, no wheezes HEART: Regular rate and rhythm, S1, S2, Holosystolic murmur ABDOMEN: Obese, Soft, nontender, nondistended, + bowel sounds, no guarding EXTREMITIES: No edema. Cast over RUE NEUROLOGICAL: Cranial nerves II through XII grossly intact. Normal speech. C5- T1 gross sensation intact b/l. Muscle strength 5/5 in LUE and 4/5 RUE (patient says due to pain) SKIN: Warm, dry. Healed, Vertical surgical scar noted along abdomen LABS Laboratory Last Values WBC 6.1 K/mm3 (4.0-10.0) 04/28/18 05:30 RBC 3.93 M/mm3 (3.60-5.2) 04/28/18 05:30 Hgb 10.4 GM/dL (10.7-15.3) L 04/28/18 05:30 Hct 31.9 % (32.4-45.2) L 04/28/18 05:30 MCV 81.0 fl (80-96) 04/28/18 05:30 MCH 26.4 pg (25.7-33.7) 04/28/18 05:30 MCHC 32.6 g/dl (32.0-36.0) 04/28/18 05:30 RDW 14.8 % (11.6-15.6) 04/28/18 05:30 Plt Count 307 K/MM3 (134-434) 04/28/18 05:30 MPV 7.1 fl (7.5-11.1) L 04/28/18 05:30 Absolute Neuts (auto) 3.0 K/mm3 (1.5-8.0) 04/28/18 05:30 Neutrophils % 49.9 % (42.8-82.8) D 04/28/18 05:30 Lymphocytes % 37.1 % (8-40) D 04/28/18 05:30 Monocytes % 6.9 % (3.8-10.2) D 04/28/18 05:30 Eosinophils % 5.2 % (0-4.5) H D 04/28/18 05:30 Basophils % 0.9 % (0-2.0) 04/28/18 05:30 Nucleated RBC % 0 % (0-0) 04/28/18 05:30 PT with INR 13.00 SEC (9.7-13.0) 04/26/18 21:20 INR 1.10 (0.83-1.09) H 04/26/18 21:20 Sodium 136 mmol/L (136-145) 04/28/18 05:30 Potassium 3.8 mmol/L (3.5-5.1) 04/28/18 05:30 Chloride 99 mmol/L (98-107) 04/28/18 05:30 Carbon Dioxide 25 mmol/L (21-32) 04/28/18 05:30 Anion Gap 12 MMOL/L (8-16) 04/28/18 05:30 BUN 18 mg/dL (7-18) 04/28/18 05:30 Creatinine 0.7 mg/dL (0.55-1.3) 04/28/18 05:30 Creat Clearance w eGFR > 60 (>60) 04/28/18 05:30 POC Glucometer 195 UNITS (80-120) 04/28/18 10:27 Random Glucose 89 mg/dL (74-106) 04/28/18 05:30 Calcium 8.5 mg/dL (8.5-10.1) 04/28/18 05:30 Phosphorus 4.2 mg/dL (2.5-4.9) 04/28/18 05:30 Magnesium 1.9 mg/dL (1.8-2.4) 04/28/18 05:30 Total Bilirubin 0.3 mg/dL (0.2-1) 04/28/18 05:30 AST 14 U/L (15-37) L 04/28/18 05:30 ALT 21 U/L (13-61) 04/28/18 05:30 Alkaline Phosphatase 81 U/L (45-117) 04/28/18 05:30 Creatine Kinase 118 IU/L (26-192) 04/26/18 21:20 Troponin I 0.11 ng/ml (0.00-0.05) H 04/27/18 07:10 Total Protein 7.2 g/dl (6.4-8.2) 04/28/18 05:30 Albumin 4.0 g/dl (3.4-5.0) 04/28/18 05:30 TSH 0.15 uIU/ml (0.358-3.74) L 04/27/18 07:10 Free T4 0.71 ng/dl (0.76-1.46) L 04/28/18 05:30 Urine Color Straw 04/26/18 23:04 Urine Appearance Clear 04/26/18 23:04 Urine pH 8.0 (5.0-8.0) D 04/26/18 23:04 Ur Specific [place] 1.009 (1.010-1.035) L 04/26/18 23:04 Urine Protein 2+ (NEGATIVE) H 04/26/18 23:04 Urine Glucose (UA) Negative (NEGATIVE) 04/26/18 23:04 Urine Ketones Negative (NEGATIVE) 04/26/18 23:04 Urine Blood 1+ (NEGATIVE) H 04/26/18 23:04 Urine Nitrite Negative (NEGATIVE) 04/26/18 23:04 Urine Bilirubin Negative (<2.0 mg/dL) 04/26/18 23:04 Urine Urobilinogen Negative mg/dL (0.2-1.0) 04/26/18 23:04 Ur Leukocyte Esterase Negative (NEGATIVE) 04/26/18 23:04 Urine WBC (Auto) 1 /hpf (3-5) 04/26/18 23:04 Urine RBC (Auto) 4 /hpf (0-3) 04/26/18 23:04 Blood Type A POSITIVE 04/26/18 21:20 Antibody Screen Negative 04/26/18 21:20 Microbiology 04/26/18 23:11 Urine - Urine Clean Catch Urine Culture - Final IMAGING: -CXR: No acute pathology. Recorded device. Right clips. Previous right humeral surgery. Clear lungs. -CT Head without contrast: No evidence of acute intracranial hemorrhage, edema, midline shift, mass effect, or skull fracture. No CT evidence of acute territorial ischemic changes. -R Wrist XRay: 3 views of the right wrist reveal a distal ulnar fracture with swelling. There may be a subtle radial styloid fracture as well. -Carotid US: Mild intimal thickening and minimal plaque buildup at the right common carotid bifurcation and bulb without evidence of hemodynamically significant stenosis, bilaterally. -EKG: SINUS RHYTHM WITH 1ST DEGREE A-V BLOCK, RIGHT BUNDLE BRANCH BLOCK, MINIMAL VOLTAGE CRITERIA FOR LVH, VR 70, QTc 475 -ECHO: LV is normal in size, LVSF is normal, No regional wall motion abnormalities, EF 55-60%, TDI suggests impaired relaxtion with elevated filling pressure, RVSF is normal, LA size is normal, RA size is normal Mild AR & MR, Moderate TR & , No pericardial effusion HOSPITAL COURSE: Date of Admission:04/26/18 Date of Discharge: 04/28/18 63 y/o F with PMHx of multiple falls (last one a month ago), seizures, non- hodgkins lymphoma, thyroid cancer s/p resection, Dm, HTN, HLD, Depression, SBO presents s/p syncopal episode and fall. Imaging done (noted above) revealed a Distal ulnar fracture and subtle radial styloid fracture but no CT evidence of acute pathology. Neurology was consulted and recommended increased hydration and to follow up with outpatient neurologist. Additionally an Echocardiogram was done, noted above. Cardiology was consulted and recommended an outpatient Treadmill stress test under close supervision for valvular (moderate aortic stenosis) response to exertion and to follow up with her outpatient tree wrapper (Dr. Grewal). Patient was seen by Orthopedics and a cast was placed over her Right Distal ulnar and radial styloid fractures. Patient continued her home does antiepiletics during her stay. Patient initially presented with a BP of 189/71 and her BP Improved on her home medications. Patient was discharged home with strict instructions to follow up with cardiology (for her outpatient treadmill stress test), Orthopedics (for repeat wrist xray), Neurology and her PCP. Minutes to complete discharge: 45 Discharge Summary Reason For Visit: SYNCOPE Current Active Problems Obesity (Acute) Syncope (Acute) Condition: Stable - Instructions Diet, Activity, Other Instructions: You presented to the hospital after a fall with a Right Wrist fracture. Continue your current seizure medications. It is recommended you increase your oral hydration. Your Right wrist was fractured on Xray and a cast was applied. Please continue to use tylenol as needed for pain. You were seen by a tree wrapper because one of your cardiac enzymes was elevated. Dr. Oviedo recommended an ischemic workup and possible stress test. Please follow up with your tree wrapper (Dr. Burgess) as your Echocardiogram revealed Moderate Aortic stenosis and you need to have a treadmill stress test under close supervision for valvular response to exertion. Continue to hydrate yourself and drink plenty of fluid. Medication Changes: 1. Your home dose Simvastatin is being changed to Lipitor 5mg daily 2. ASA 81mg was added to your home dose medications Follow up with the following physicians: 1. Neurologist: Dr. Lainez in one week 2. Auto Radiator Mechanic: Dr. Burgess in one week to schedule a treadmill stress test under close supervision for valvular response to exertion. 3. Orthopedic surgery: Dr. Waller in one week for follow up Right Wrist Xray 4. PCP: to follow up lab results Continue all your other medications as prescribed. Please return to the ER if you have any signs or symptoms of chest pain, shortness of breath, uncontrollable fever, chills, nausea, vomiting, numbness, tingling, or weakness in any part of your body, changes in vision, or slurred speech. Please return to the ER if symptoms persist, worsen, or new symptoms arise. Referrals: Meme Grewal [Other] - 1 Week Robson Waller MD [Staff Physician] - 1 Week Kehinde Lainez MD [Staff Physician] - 1 Week Edmond Oviedo MD [Staff Physician] - 1 Week Liu Orona MD [Staff Physician] - 1 Week Disposition: HOME - Home Medications Comprehensive Discharge Medication List: Ambulatory Orders Amlodipine Besylate 5 mg PO DAILY 04/27/18 Bupropion HCl [Bupropion Xl] 300 mg PO DAILY 04/27/18 Fenofibrate Nanocrystallized [Tricor] 145 mg PO DAILY 04/27/18 Gabapentin 100 mg PO BID 04/27/18 Insulin Degludec [Tresiba Flextouch U-100] 16 unit SQ ACHS 04/27/18 Lamotrigine 100 mg PO BID 04/27/18 Levothyroxine [Synthroid -] 150 mcg PO DAILY 04/27/18 Lisinopril 30 mg PO DAILY 04/27/18 Naltrexone HCl 50 mg PO DAILY 04/27/18 Oxcarbazepine 300 mg PO BID 04/27/18 Pantoprazole Sodium [Protonix -] 20 mg PO DAILY 04/27/18 Sertraline HCl [Zoloft] 100 mg PO DAILY 04/27/18 Aspirin [ASA -] 81 mg PO DAILY #30 tab.chew 04/28/18 Atorvastatin Ca [Lipitor] 5 mg PO HS #30 tablet 04/28/18 This patient is new to me today: No Emergency Visit: Yes ED Registration Date: 04/26/18 Care time: The patient presented to the Emergency Department on the above date and was hospitalized for further evaluation of their emergent condition. Critical Care patient: No - Discharge Referral Referred to [facility] Med P.C.: No
== END 2018-04-28 14:16 | disposition home or self-care (01) ==
LOC: JER 19:08 → JERBED 22:39 → J4W 04-27 16:53
PROVIDERS: ADMIT Internal Medicine; ATTEND Internal Medicine
PROC: 2W3CX2Z Immobilization of Right Lower Arm using Cast (ICD-10-PCS; principal; 2018-04-26)
PROC: 3E0234Z Introduction of Serum, Toxoid and Vaccine into Muscle, Percutaneous Approach (ICD-10-PCS; 2018-04-26)
PROC: 3E033NZ Introduction of Analgesics, Hypnotics, Sedatives into Peripheral Vein, Percutaneous Approach (ICD-10-PCS; 2018-04-26)
PROC: 3E013GC Introduction of Other Therapeutic Substance into Subcutaneous Tissue, Percutaneous Approach (ICD-10-PCS; 2018-04-26)
DX: R55 Syncope and collapse (principal); R77.8 Other specified abnormalities of plasma proteins; S52.601A Unspecified fracture of lower end of right ulna, initial encounter for closed fracture; S52.514A Nondisplaced fracture of right radial styloid process, initial encounter for closed fracture; S80.212A Abrasion, left knee, initial encounter; W18.39XA Other fall on same level, initial encounter; Y93.01 Activity, walking, marching and hiking; Y92.89 Other specified places as the place of occurrence of the external cause; Z85.72 Personal history of non-Hodgkin lymphomas; Z85.850 Personal history of malignant neoplasm of thyroid; R01.1 Cardiac murmur, unspecified; G40.909 Epilepsy, unspecified, not intractable, without status epilepticus; E11.9 Type 2 diabetes mellitus without complications; E78.5 Hyperlipidemia, unspecified; I44.0 Atrioventricular block, first degree; I45.10 Unspecified right bundle-branch block; E66.01 Morbid (severe) obesity due to excess calories; Z68.36 Body mass index [BMI] 36.0-36.9, adult; K43.9 Ventral hernia without obstruction or gangrene; Z79.4 Long term (current) use of insulin; Z79.82 Long term (current) use of aspirin; Z79.84 Long term (current) use of oral hypoglycemic drugs; Z88.0 Allergy status to penicillin; S00.03XA Contusion of scalp, initial encounter; S63.502A Unspecified sprain of left wrist, initial encounter; Z23 Encounter for immunization
CPT/HCPCS: 36415; 70450-TC; 71045-TC-FY; 73110-TC-RT-FY; 80053; 81003; 81015; 82550; 82962; 83735; 84100; 84439; 84443; 84484; 85025; 85027; 85610; 86850; 86900; 86901; 87086; 90688; 93005; 93010; 93306-TC; 93880-TC; 99285-25; G0378; J0131; J1644

== ENCOUNTER 2019-06-28 13:44 | Emergency (ER) | payer OTHER ==
--- NOTE | 2019-06-28 13:49 | PDOC ---
History of Present Illness - General Chief Complaint: Injury Stated Complaint: SLIP AND FALL IN GYM LACERATION TO FOREHEAD AND LE Time Seen by Provider: 06/28/19 13:47 - History of Present Illness Initial Comments: 06/28/19 13:48 64yo female presents via ambulance for eval of Pmhx: Falls, seizures, non-hodgkins lymphoma, thyroid cancer s/p resection, diabetes, hypertension, hyperlipidemia, depression, small bowel obstruction Pshx: Mesenteric artery, hernia repair, cholecystectomy, thyroidectomy Past History - Past Medical History Allergies/Adverse Reactions: Allergies Allergy/AdvReac Type Severity Reaction Status Date / Time Penicillins Allergy Unknown Verified 06/28/19 13:46 Home Medications: Ambulatory Orders Amlodipine Besylate 5 mg PO DAILY 04/27/18 Bupropion HCl [Bupropion Xl] 300 mg PO DAILY 04/27/18 Fenofibrate Nanocrystallized [Tricor] 145 mg PO DAILY 04/27/18 Gabapentin 100 mg PO BID 04/27/18 Insulin Degludec [Tresiba Flextouch U-100] 16 unit SQ ACHS 04/27/18 Lamotrigine 100 mg PO BID 04/27/18 Levothyroxine [Synthroid -] 150 mcg PO DAILY 04/27/18 Lisinopril 30 mg PO DAILY 04/27/18 Naltrexone HCl 50 mg PO DAILY 04/27/18 Oxcarbazepine 300 mg PO BID 04/27/18 Pantoprazole Sodium [Protonix -] 20 mg PO DAILY 04/27/18 Sertraline HCl [Zoloft] 100 mg PO DAILY 04/27/18 Aspirin [ASA -] 81 mg PO DAILY #30 tab.chew 04/28/18 Atorvastatin Ca [Lipitor] 5 mg PO HS #30 tablet 04/28/18 Cancer: Yes (Thyroid) COPD: No CHF: No Diabetes: Yes GI Disorders: Yes (MULTIPLE OBSTRUCTIONS) HTN: Yes Hypercholesterolemia: Yes Psychiatric Problems: Yes (Depression) Seizures: Yes - Surgical History Abdominal Surgery: Yes (HERNIA) Cholecystectomy: Yes GI Surgery: Yes - Immunization History Immunization Up to Date: No - Psycho Social/Smoking Cessation Hx Smoking History: Never smoked Have you smoked in the past 12 months: No Number of Cigarettes Smoked Daily: 0 Hx Alcohol Use: No Drug/Substance Use Hx: No Substance Use Type: None Discharge - Discharge Information Condition: Stable - Follow up/Referral - Patient Discharge Instructions - Post Discharge Activity
[2019-06-28 14:19] VITALS: BP 158/66; PULSE 64; TEMP 98.4; BMI 43.7
[2019-06-28] MEDS ORDERED: ACETAMINOPHEN 500 MG TABLET (FP) PO ONE (14:55)
[2019-06-28] MEDS ORDERED: ACETAMINOPHEN 500 MG TABLET (FP) ONE (14:56)
[2019-06-28] MEDS ORDERED: DIPHTH,PERTUSS(ACELL),TET 0.5 ML DISP.SYRIN IM ONE ×2 (15:15→15:23)
--- NOTE | 2019-06-28 15:21 | PDOC ---
Documentation entered by Mari Olivas SCRIBE, acting as scribe for Aysha Eugene DO. Aysha Eugene DO: This documentation has been prepared by the Deisy black Joy, SCRIBE, under my direction and personally reviewed by me in its entirety. I confirm that the documentation accurately reflects all work, treatment, procedures, and medical decision making performed by me. History of Present Illness - General Chief Complaint: Injury Stated Complaint: SLIP AND FALL IN GYM LACERATION TO FOREHEAD AND LE Time Seen by Provider: 06/28/19 13:47 History Source: Patient Exam Limitations: No Limitations - History of Present Illness Initial Comments: 06/28/19 14:38 The patient is a 64 year old female with significant past medical history of epilepsy, seizure disorder, HTN, DM, hyperlipidemia, non-hodgkin's lymphoma, thyroid cancer, and depression who presents to the ED with laceration to left eyebrow and left elbow s/p fall earlier today. As per patient, she was working out at the gym when her heels went off the apparatus and her shoes slipped which caused her to fall on her left elbow and face. The patient endorses that she did not lose consciousness. The patient adds that she does have a headache and bilateral knee pain. The patient states that she does not know when she last had her tetanus shot. The patient denies dizziness, LOC, blurry vision, or change in vision. Denies numbness or tingling. Denies back pain, chest pain, shortness of breath, palpitations. Denies fever, chills, nausea, vomiting, diarrhea and constipation. Allergies: Penicillin Surgical History: x2 knee replacement surgery, gastric bypass, hysterectomy, thyroid removal (cancer). PCP: Dr. Hector Varma Past History - Past Medical History Allergies/Adverse Reactions: Allergies Allergy/AdvReac Type Severity Reaction Status Date / Time Penicillins Allergy Unknown Verified 06/28/19 13:46 Home Medications: Ambulatory Orders Amlodipine Besylate 5 mg PO DAILY 04/27/18 Bupropion HCl [Bupropion Xl] 300 mg PO DAILY 04/27/18 Fenofibrate Nanocrystallized [Tricor] 145 mg PO DAILY 04/27/18 Gabapentin 100 mg PO BID 04/27/18 Insulin Degludec [Tresiba Flextouch U-100] 16 unit SQ ACHS 04/27/18 Lamotrigine 100 mg PO BID 04/27/18 Levothyroxine [Synthroid -] 150 mcg PO DAILY 04/27/18 Lisinopril 30 mg PO DAILY 04/27/18 Naltrexone HCl 50 mg PO DAILY 04/27/18 Oxcarbazepine 300 mg PO BID 04/27/18 Pantoprazole Sodium [Protonix -] 20 mg PO DAILY 04/27/18 Sertraline HCl [Zoloft] 100 mg PO DAILY 04/27/18 Aspirin [ASA -] 81 mg PO DAILY #30 tab.chew 04/28/18 Atorvastatin Ca [Lipitor] 5 mg PO HS #30 tablet 04/28/18 Cancer: Yes (Thyroid, NON HODGKINS LYMPHOMA) COPD: No CHF: No Diabetes: Yes GI Disorders: Yes (MULTIPLE OBSTRUCTIONS) HTN: Yes Hypercholesterolemia: Yes Psychiatric Problems: Yes (Depression) Seizures: Yes - Surgical History Abdominal Surgery: Yes (HERNIA) Cholecystectomy: Yes Gastric Stapling: Yes (SLEEVE) GI Surgery: Yes - Immunization History Immunization Up to Date: No - Psycho Social/Smoking Cessation Hx Smoking History: Never smoked Have you smoked in the past 12 months: No Number of Cigarettes Smoked Daily: 0 Information on smoking cessation initiated: No Hx Alcohol Use: No Drug/Substance Use Hx: No Substance Use Type: None Review of Systems - Review of Systems Able to Perform ROS?: Yes Comments:: 06/28/19 14:38 GENERAL/CONSTITUTIONAL: No fever or chills. No weakness. HEAD, EYES, EARS, NOSE AND THROAT: +Laceration to left eyebrow. No change in vision. No ear pain or discharge. No sore throat. CARDIOVASCULAR: No chest pain or shortness of breath. RESPIRATORY: No cough, wheezing, or hemoptysis. GASTROINTESTINAL: No nausea, vomiting, diarrhea or constipation. MUSCULOSKELETAL: +Bilateral knee pain. No neck or back pain. EXTREMITIES:+ Left elbow laceration. SKIN: No rash NEUROLOGIC: +Headache. No vertigo, loss of consciousness, or change in strength/ sensation. HEMATOLOGIC/LYMPHATIC: No anemia, easy bleeding, or history of blood clots. ALLERGIC/IMMUNOLOGIC: No hives or skin allergy. *Physical Exam - Vital Signs Last Vital Signs Temp Pulse Resp BP Pulse Ox 98.4 F 64 16 158/66 98 06/28/19 13:46 12/30/19 13:46 06/28/19 13:46 06/28/19 13:46 06/28/19 13:46 - Physical Exam General Appearance: Yes: Nourished, Appropriately Dressed. No: Apparent Distress HEENT: positive: EOMI, LAZARA, Normal Voice, Pharynx Normal, Other (L eyebrow with 4cm lac). negative: Nasal Congestion, Rhinorrhea, Sinus Tenderness Neck: positive: Supple, Other (no stepoffs or deformities). negative: Tender midline Respiratory/Chest: positive: Lungs Clear, Normal Breath Sounds. negative: Chest Tender, Respiratory Distress Cardiovascular: positive: Regular Rhythm, Regular Rate, S1, S2. negative: Edema Gastrointestinal/Abdominal: positive: Soft, Other (obese). negative: Guarding, Rebound, Tenderness Musculoskeletal: positive: Normal Inspection, Other (no stepoffs or deformities) . negative: CVA Tenderness, Vertebral Tenderness Extremity: positive: Normal Capillary Refill, Normal Range of Motion, Other (L elbow 1.5cm lac without active bleeding, FROM of the elbow, small area of ecchymosis) Integumentary: positive: Normal Color, Warm, Other (L eyebrow lac- no active bleeding, L elbow lac- no active bleeding, L knee abrasion, FROM of L knee) Neurologic: positive: food safety coordinator II-XII NML intact, Fully Oriented, Alert, Normal Mood/ Affect, Normal Response, Motor Strength 5/5, Other (ambulatory with a steady gait). negative: Sensory Deficit Procedures - Laceration/Wound Repair Left Eye Wound Length: 2.6 to 5.0 cm Wound Explored: clean Wound's Depth, Shape: linear Irrigated w/ Saline: Yes Anesthesia: 1% Lidocaine Amount of Anesthetic (ccs): 2 Wound Repaired With: Sutures Suture Size/Type: 5:0 Number of Sutures: 8 Sterile Dressing Applied: Yes Progress: 06/28/19 15:18 pt tolerated the procedure well Left Posterior Elbow Wound Length: to 2.5 cm Wound Explored: clean Wound's Depth, Shape: superficial Irrigated w/ Saline: Yes Anesthesia: 1% Lidocaine (1) Wound Debrided: minimal Wound Repaired With: Sutures Suture Size/Type: 4:0 Number of Sutures: 2 Sterile Dressing Applied: Yes Progress: 06/28/19 15:20 pt tolerated the procedure well ED Treatment Course - RADIOLOGY Radiology Studies Ordered: Category Date Time Status HEAD CT WITHOUT CONTRAST [CT] Stat CT Scan 06/28/19 14:54 Ordered ELBOW-LEFT [RAD] Stat Radiology 06/28/19 14:54 Ordered - Medications Given in the ED: ED Medications Discontinued Medications Generic Name Dose Route Start Last Admin Trade Name Xavier PRN Reason Stop Dose Admin Acetaminophen 1,000 mg 06/28/19 14:55 06/28/19 14:58 Tylenol - PO 06/28/19 14:56 1,000 mg ONCE ONE Administration Medical Decision Making - Medical Decision Making 06/28/19 15:18 a/p: 64yo female with mechanical slip and fall at the gym with L eyebrow lac, L elbow lac, L knee abrasion -feet slipped out from under her -no loc -on asa -eyebrow and elbow lac repaired -will order head ct, elbow xray -neuro intact -will give tylenol for pain and update tetanus -no neck or back ttp -pt is nontoxic in appearance 06/28/19 15:[address] reviewed-pending rads read, but appears without acute intracranial abnl elbow without fx 06/28/19 15:[address] without acute findings pt ambulatory in the ED neuro intact pt chatting in nad on the phone throughout the ER visit pt stable for dc to home and follow up with her PMD. Discharge - Discharge Information Problems reviewed: Yes Clinical Impression/Diagnosis: Closed head injury, Fall, Elbow laceration, Knee abrasion, Eyebrow laceration Condition: Stable Disposition: HOME - Admission No - Follow up/Referral Referrals: Hector Beltrán [Non Staff, Medical] - - Patient Discharge Instructions Patient Printed Discharge Instructions: DI for Laceration Repair -- Simple, DI for Closed Head Injury, How to Prevent Falls, DI for Abrasion, DI for Elbow Pain Additional Instructions: Please apply topical antibiotic cream to the sutures. Please keep the sutures clean and dry for the next 24 hours. After 24 hours you may wash and dab lightly with soap and warm water. Do not rub the sutures. Please keep the sutures and laceration clean and dry. Please have the eyebrow sutures removed in about 5 days and the elbow sutures removed in about 7 days. Please follow up with your PMD. Please return to the ED with any further concerns or complaints. - Post Discharge Activity
== END 2019-06-28 16:08 | disposition home or self-care (01) ==
LOC: FER 13:44
PROC: 3E0234Z Introduction of Serum, Toxoid and Vaccine into Muscle, Percutaneous Approach (ICD-10-PCS; principal; 2019-06-28)
DX: S01.81XA Laceration without foreign body of other part of head, initial encounter (principal); W18.39XA Other fall on same level, initial encounter; Y93.89 Activity, other specified; Y92.39 Other specified sports and athletic area as the place of occurrence of the external cause; F32.9 Major depressive disorder, single episode, unspecified; I10 Essential (primary) hypertension; Z85.850 Personal history of malignant neoplasm of thyroid; C85.90 Non-Hodgkin lymphoma, unspecified, unspecified site; G40.909 Epilepsy, unspecified, not intractable, without status epilepticus; E11.9 Type 2 diabetes mellitus without complications; E78.5 Hyperlipidemia, unspecified; Z88.0 Allergy status to penicillin
CPT/HCPCS: 70450-TC; 73070-TC-LT-FY; 90715; 99281-25